=== PATIENT | female | born 1950 | race Caucasian/White ===

== ENCOUNTER 2016-06-05 07:30 | Inpatient (IN) | payer MEDICARE ==
--- NOTE | 2016-05-01 14:00 | NUR ---
JOINT REPLACEMENT PREOP CLASS PATIENT ATTENDED JOINT REPLACEMENT PREOP CLASS. CASE MANAGEMENT CONTACT INFORMATION PROVIDED. EDUCATION WAS PROVIDED REGARDING WHAT TO EXPECT BEFORE, DURING AND AFTER SURGERY. INCLUDING: OVERVIEW OF ANATOMY AND PHYSIOLOGY HOSPITAL TREATMENT SCHEDULE THERAPY DEMONSTRATION CASE MANAGEMENT RESPONSIBILITIES DISCHARGE PLANNING EQUIPMENT NEEDS JOINT REPLACEMENT WORKBOOK ANTI-COAGULATION SURGERY STRONG NUTRITIONAL PROTOCOL DISCHARGE INSTRUCTIONS [facility] PATIENT PORTAL, WITH INSTRUCTIONS CJR AND PREOP SURVERY PREOP BATHING- CHG GIVEN ALL PATIENT'S QUESTIONS ANSWERED TO THEIR SATISFACTION. PATIENTS AND COACHES ENCOURAGED TO CALL WITH ANY ADDITIONAL QUESTIONS OR CONCERNS. CM FOLLOWING FOR TRANSITIONAL CARE PLANNING NEEDS DURING HOSPITALIZATION.
--- NOTE | 2016-05-09 15:53 | NUR ---
PMH, allergies, meds reviewed and documented. Preop and DOS instructions given including handouts of medications to stop before surgery, shower instructions, letter from Dr Zepeda, ortho consent, Surgical Services pamphlet, and my contact information. Patient does express anxiety regarding several aspects of anesthesia, medications and postop care. She was tearful much of the time and did say Dr Zepeda has suggested she talk to Dr Morris about anxiety medication before surgery. I did reinforce that and also informed her I would be in contact with Dr Morris's office regarding this. I also encouraged her to call me if she has any other concerns so we can talk about it and she has agreed.
--- NOTE | 2016-05-19 13:06 | NUR ---
CM- PREOP CLASS PT ATTENDED PRE-OP CLASS AGAIN. AFTER CLASS SHE SPOKE WITH CM ABOUT CONCERNS WITH PAIN MEDICATIONS POSTOP DUE TO HER HISTORY OF ETOH ABUSE. CM ENCOURAGED PT TO DISCUSS THIS WITH SURGEON SINCE HE WILL BE PRESCRIBING THE MEDICATION.S
--- NOTE | 2016-05-30 15:06 | NUR ---
PT CONCERNS PT CALLED AND REQUESTED THAT SHE ONLY RECEIVE THE FOLLOWING 4 HOME MEDICATIONS DURING HER HOSPITAL STAY. SHE DOES NOT WANT TO BE CHARGED FOR ANY BUT THESE: FENOFIBRATE LEVOTHYROXINE METOPROLOL SUCCINATE LOSARTAN POTASSIUM SHE REALIZES SHE IS AN IP AND MEDICARE WILL COVER THE MEDS, BUT SHE WANTS TO DO WHAT SHE CAN TO SAVE HEALTHCARE COSTS.
--- NOTE | 2016-05-31 10:20 | NUR ---
Postpone surgery Pt called to say she still has a bladder infection and needs to postpone her surgery. Rescheduled surgery for a later date and OR central scheduler notified with fax. Will plan to request clearance from Dr Gonzalez for her next scheduled DOS
[~2016-06-05] VITALS: Ht 154.9 cm; Wt 99.5 kg
[~2016-06-05 07:30] MED LIST: ACET-2890 PO; ASPI-1085 PO; BUME1TAB17 PO; COQ PO; ESTR42.53 VAGINALLY; FENO160T12 PO; FISH1CAP59 PO; FLUT16SP NS; KRILL OIL PO; LEVO125T62 PO; LOSA100T44 PO; METO-277 PO; POTA99TA24 PO
--- NOTE | 2016-06-12 09:18 | NUR ---
UTI Pt called to let me know she continues to struggle with UTI. Antibiotic has been changed and Dr Gonzalez has put her on a different medication for overactive bladder which she will start today or tomorrow. She has a followup appointment with Dr Gonzalez on 06-28 and agreed to call me after her appointment to let me know how the bladder infection is doing.
[2016-06-28] MEDS ORDERED: MIRA50TA PO (16:41)
[2016-06-28] MEDS ORDERED: CEPH-583 PO (16:44)
--- NOTE | 2016-07-02 18:26 | HPF ---
CHIEF COMPLAINT Left knee pain. HPI This is a 65-year-old lady complaining of left knee pain. She is scheduled for a left knee replacement on 07/05/2016. Her pain is severe. It is worsening. The pain is described as sharp, throbbing and aching. It is made worse with activity or changes in weather. She has tried rest, ice, heat, Tylenol and home exercises. She had an arthroscopic procedure which confirmed arthritic changes. She has tried steroid injections without much relief. PAST MEDICAL HISTORY ALLERGIES Antihistamines, sulfa, codeine, Benadryl, gentamycin and prednisone. CURRENT MEDICATIONS Reviewed in EMR. ILLNESSES Hypertension. Hypothyroidism. Stroke in 2009. Chronic UTIs with incontinence. History of pneumonia. History of alcoholism with now 22 years of sobriety. PAST SURGICAL HISTORY Bilateral knee scopes. Tubal ligation. Abdominal hysterectomy. Bladder tuck procedure. REVIEW OF SYSTEMS Unchanged from copy in the chart. PHYSICAL EXAMINATION 65-year-old lady who is alert and oriented, in no distress. She is very anxious about her upcoming surgery. The left knee shows skin to be intact without lesions. She has a varus deformity which is correctable. She is tender to palpation along the medial joint line. She is maintaining good range of motion and is neurovascularly intact to the lower extremity. ASSESSMENT Primary degenerative arthritis of the left knee. PLAN Patient has been evaluated by Dr. Zepeda in the office and found to be an acceptable candidate to proceed with knee replacement. She has a history of pain medication abuse and therefore we will avoid narcotics after surgery to try to focus on tramadol. She does have a significant urinary incontinence problem and is requesting use of a catheter after surgery. Risks and potential complications of surgery have been reviewed. She has no further questions at this time. Will proceed with total knee replacement 07/05/2016. JASEN
[2016-07-05] VITALS (25 sets, daily range): BP systolic 152–227; BP diastolic 69–108; PULSE 57–75; RESP 16–22; TEMP 95.8–97.8; O2SAT 90–100; Ht 154.9 cm; Wt 99.5 kg
[2016-07-05] MEDS ORDERED: FAMOTIDINE 20mg IVPB 50 ML IV ONE (06:00)
[2016-07-05] MEDS ORDERED: CEFAZOLIN 2 GM VIAL IV ONE (06:00)
[2016-07-05] MEDS ORDERED: LIDOCAINE 1% (10mg/ml) 2ml SDV SQ ONE (06:00)
[2016-07-05] MEDS ORDERED: TRANEXAMIC ACID 1000 MG/10 ML TOP ONE (06:00)
[2016-07-05] MEDS ORDERED: METOCLOPRAMIDE 10mg/2ml INJECTION IV ONE (06:00)
[2016-07-05] MEDS ORDERED: LR 1,000 ML IV SCH (07:00)
[2016-07-05] MEDS ORDERED: ACETAMINOPHEN 500 MG TABLET PO ONE (07:00)
[2016-07-05] MEDS ORDERED: NOZIN NASAL SWAB NS ONE ×2 (07:00→15:45)
[2016-07-05] MEDS ORDERED: EPINEPHRINE 0.25 MG, BUPIVACAINE 0.25% 75 MG, KETOROLAC 60 MG in NORMAL SALINE 30 ML INJ ONE (07:00)
[2016-07-05] MEDS ORDERED: ONDANSETRON 4mg/2ml INJECTION IV ONE (07:00)
--- OUTSIDE RECORDS SUMMARY | 2016-07-05 10:30 | XMS REPORT | Summary of Care ---
Author Author Woodrow Gonzalez M.D. Unknown Address [address] [place] [address] [place] [address] Phone Unavailable Care Team Providers Care Public Health Worker Name Role Phone Woodrow Gonzalez M.D. 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, 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) Status: Active Hematuria (599.70, R31.9) Status: Active Chronic cystitis (595.2, N30.20) Status: Active UTI (urinary tract infection) (599.0, N39.0) Status: Active Atrophic vaginitis (627.3, N95.2) Status: Active Recurrent UTI (599.0, N39.0) Status: Active Incomplete emptying of bladder (788.21, R33.9) Status: Active Urinary incontinence, mixed (788.33, N39.46) Status: Active Polyuria (788.42, R35.8) Status: Active Medications Name Dates Details Cozaar 100 MG Oral Tablet Active Flonase 50 MCG/ACT SUSP * Refills: 0 Active Potassium Gluconate 595 (99 K) MG Oral Tablet * Refills: 0 Active Fenofibrate 160 MG Oral Tablet * Refills: 0 Active Levothyroxine Sodium 125 MCG Oral Tablet * Refills: 0 Active Toprol XL 50 MG Oral Tablet Extended Release 24 Hour * Refills: 0 Active Aspirin Low Dose 81 MG TABS * Refills: 0 Active Fish Oil 1200 MG Oral Capsule Delayed Release * Refills: 0 Active Co Q10 Maximum Strength CAPS * Refills: 0 Active Oxymetazoline HCl Powder * Refills: 0 Active Oxybutynin Chloride 5 MG Oral Tablet TAKE 1 TABLET 3 times daily * Quantity: 270 Refills: 3 Carlos Mariee Woodrow * Start 14-Dec-2015 Active Estrace 0.1 MG/GM Vaginal Cream USE DIRECTED. * Refills: 0 * Start 03-May-2016 Active Myrbetriq 50 MG Oral Tablet Extended Release 24 Hour Take 1 tablet daily * Quantity: 90 Refills: 3 Carlos Jaylene Woodrow * Start 31-May-2016 Active Allergies and Adverse Reactions Name Dates Details Antihistamines, Loratadine-type (Allergy) Status: Active gentamicin (Allergy) Status: Active predniSONE (Allergy) Status: Active Sulfa Drugs (Allergy) Status: Active Past Medical History Name Dates Details History of (637.90, O03.9) Status: Resolved History of pneumonia (V12.61, Z87.01) Status: Resolved History of stroke (V12.54, Z86.73) Status: Resolved Procedures Procedure Dates Details History of Tubal Ligation History of Hysterectomy History of Knee Arthroscopy Procedures not documented Immunization Name Dates Details Immunizations not documented Family History Name Dates Details Family history of diabetes mellitus (V18.0, Z83.3) Status: Active Name Dates Details Family history of malignant neoplasm (V16.9, Z80.9) Status: Active Name Dates Details Family history of malignant neoplasm (V16.9, Z80.9) Status: Active Social History Name Dates Details - Status: Name Dates Details Never smoker Vital Signs Date Test Result Details No Known Vitals to report Results Date Description Value Details 04-Jun-2016 09:25 URINE CULTURE [id number] Comments: Quest performed at: [facility] [place] [address] [facility] [place], [address], Upper Extremity Surgeon: Woodrow Leon D.O., MPHQuest Collection Date/Time: [id number] Results Received Date/Time: [id number] Reported Date/Time: [id number] FASTING:NOQuest performed at: [facility] [place] [address] [place], [address], Upper Extremity Surgeon: Woodrow Leon D.O., MPHQuest Collection Date/Time: [id number] Results Received Date/Time: [id number] Reported Date/Time: [id number] FASTING:NO CULTURE, URINE, ROUTINE SEE NOTE (Abnormal) Comments: CULTURE, URINE, ROUTINE MICRO NUMBER: [id number] TEST STATUS: FINAL SPECIMEN SOURCE : URINE, CATHETER SPECIMEN QUALITY: ADEQUATE RESULT: Greater than 100,000 CFU/mL of Escherichia coli E.coli INT SARAH AMOX/ CLAVULANATE I 16 AMPICILLIN R >=32 AMP/SULBACTAM R >=32 CEFAZOLIN NR <=4 1 CEFEPIME S <=1 CEFTRIAXONE S <=1 CIPROFLOXACIN R >=4 ERTAPENEM S <=0.5 GENTAMICIN S <=1 IMIPENEM S <=0.25 LEVOFLOXACIN R >=8 NITROFURANTOIN S <=16 PIP/TAZOBACTAM R >=128 TOBRAMYCIN S <=1 TRIMETHOPRIM/SULFA R >=320S= Susceptible I=Intermediate R=Resistant *=Not TestedNR=Not Reported NN=See Therapy CommentsTHERAPY COMMENTS Note 1: ORAL therapy: A cefazolin SARAH of < 32 predicts susceptibility to the oral agents cefaclor, cefdinir, cefpodoxime, cefprozil, cefuroxime, cephalexin, and loracarbef when used for therapy of uncomplicated UTIs due to E. coli, K. pneumoniae, and P. mirabilis. PARENTERAL therapy: A cefazolin SARAH of > 8 indicates resistance to parenteral cefazolin. An alternate test method must be performed to to confirm susceptibility to parenteral cefazolin.[[place]]----- Plan of Care Name Dates Details Planned Observations Planned Goals not documented Planned Encounters Appointment; Provider: Woodrow Gonzalez M.D. On 28-Jun-2016 09:30 Instructions Name Dates Details Instructions not documented Encounters Appointment; Woodrow Gonzalez M.D. Encounter Diagnosis: Problem not documented On 31-May-2016 09:00 Appointment; Woodrow Gonzalez M.D. Encounter Diagnosis: Problem not documented On 03-May-2016 09:45 Appointment; Cho, Woodrow, M.D. Encounter Diagnosis: Problem not documented On 22-Feb-2016 16:15 Appointment; Woodrow Gonzalez M.D. Encounter Diagnosis: Problem not documented On 15-Feb-2016 15:45 Appointment; Woodrow Gonzalez M.D. Encounter Diagnosis: Problem not documented On 03-Feb-2016 10:30 Appointment; Woodrow Gonzalez M.D. Encounter Diagnosis: Problem not documented On 23-Dec-2015 10:30 Appointment; Woodrow Gonzalez M.D. Encounter Diagnosis: Problem not documented On 14-Dec-2015 09:45
--- OUTSIDE RECORDS SUMMARY | 2016-07-05 10:30 | XMS REPORT | Summary of Care ---
Author Author Woodrow Gonzalez M.D. Unknown Address [address] [place] [address] [place] [address] Phone Unavailable Care Team Providers Care Extractor Operator Helper Name Role Phone Woodrow Gonzalez M.D. Unavailable [...] Status: Active Hematuria (599.70, R31.9) Status: Active Polyuria (788.42, R35.8) Status: Active Recurrent UTI (599.0, N39.0) Status: Active Chronic cystitis (595.2, N30.20) Status: Active UTI (urinary tract infection) (599.0, N39.0) Status: Active Incomplete emptying of bladder (788.21, R33.9) Status: Active Urinary incontinence, mixed (788.33, N39.46) Status: Active Atrophic vaginitis (627.3, N95.2) Status: Active Medications Name Dates Details Cozaar [...] times daily * Quantity: 270 Refills: 3 Woodrow Gonzalez M.D. * Start 14-Dec-2015 Active Estrace 0.1 MG/GM Vaginal Cream USE DIRECTED. * Refills: 0 * Start 03-May-2016 Active Ciprofloxacin HCl - 250 MG Oral Tablet TAKE 1 TABLET TWICE DAILY. * Quantity: 28 Refills: 0 Woodrow Gonzalez M.D. * Start 03-May-2016 Active Allergies and Adverse Reactions Name Dates [...] smoker Vital Signs Date Test Result Details 03-May-2016 09:46 BP Systolic 160 mm[Hg] Status: Comments: Location: ; Position: BP Diastolic 89 mm[Hg] Status: Comments: Location: ; Position: Heart Rate 63 /min Status: Comments: Location: ; Weight 209 lb Status: Body Mass Index Calculated 39.49 kg/m2 Status: Body Surface Area Calculated 1.92 m2 Status: Results Date Description Value Details 05-May-2016 15:49 URINE CULTURE [id number] Comments: New KCBX performed at: [place], [facility] [place] [address] [address] [facility] [place], [address], Mechanical Supervisor: Woodrow Leon D.O., MPHQuest Collection Date/Time: [id number] Results Received Date/Time: [id number] Reported Date/Time: [id number] FASTING:NOQuest performed at: [facility], [address] [place], [address], Mechanical Supervisor: Woodrow Leon D.O., MPHQuest Collection Date/Time: [id number] Results Received Date/Time: [id number] Reported Date/Time: [id number] FASTING:NO CULTURE, URINE, ROUTINE SEE NOTE (Abnormal) Comments: CULTURE, URINE, ROUTINE MICRO NUMBER: [id number] TEST STATUS: FINAL SPECIMEN SOURCE : URINE, CATHETER SPECIMEN QUALITY: ADEQUATE RESULT: 10,000-50, 000 CFU/mL of Escherichia coli E.coli INT SARAH AMOX/CLAVULANATE S 4 AMPICILLIN R >=32 AMP/SULBACTAM I 16 CEFAZOLIN NR <=4 1 CEFEPIME S <=1 CEFTRIAXONE S <=1 CIPROFLOXACIN R >=4 ERTAPENEM S <=0.5 GENTAMICIN S <=1 IMIPENEM S <=0.25 LEVOFLOXACIN R >=8 NITROFURANTOIN S <=16 PIP/TAZOBACTAM S <=4 TOBRAMYCIN S <=1 TRIMETHOPRIM/SULFA S <=20S= Susceptible I=Intermediate R=Resistant *=Not TestedNR=Not Reported NN=See [...] performed to to confirm susceptibility to parenteral cefazolin.[[place]]----- Plan of Care Name Dates Details Planned Observations Planned Goals not documented Planned Encounters Appointment; Provider: Woodrow Gonzalez M.D. On 17-May-2016 10:00 Instructions Name Dates Details Instructions not documented Encounters Appointment; Woodrow Gonzalez M.D. Encounter Diagnosis: Problem not documented On 03-May-2016 09:45 Appointment; Woodrow Gonzalez M.D. Encounter Diagnosis: Problem [...]
--- OUTSIDE RECORDS SUMMARY | 2016-07-05 10:30 | XMS REPORT | Summary of Care ---
Author Author Woodrow Gonzalez M.D. Unknown Address [address] [place] [address] [place] [address] Phone Unavailable Care Team Providers Care Dials Supervisor Name Role Phone Woodrow Gonzalez M.D. 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: Active Medications Name Dates Details Cozaar 100 MG Oral Tablet Active Flonase 50 MCG/ACT SUSP * Refills: 0 Active Potassium Gluconate 595 MG Oral Tablet * Refills: 0 Active Fenofibrate 160 MG Oral Tablet * Refills: 0 Active Levothyroxine Sodium 125 MCG Oral Tablet * Refills: 0 Active Toprol XL 50 MG Oral Tablet Extended Release 24 Hour * Refills: 0 Active Toviaz 8 MG Oral Tablet Extended Release 24 Hour * Refills: 0 Active Aspirin Low Dose 81 MG TABS * Refills: 0 Active Fish Oil 1200 MG Oral Capsule Delayed Release * Refills: 0 Active Co Q10 Maximum Strength CAPS * Refills: 0 Active Oxymetazoline HCl Powder * Refills: 0 Active Ciprofloxacin HCl - 250 MG Oral Tablet TAKE 1 TABLET EVERY 12 HOURS DAILY. * Quantity: 20 Refills: 0 Cho M.D., Woodrow * Start 14-Dec-2015 Active Oxybutynin Chloride 5 MG Oral Tablet TAKE 1 TABLET 3 times daily * Quantity: 270 Refills: 3 Cho M.D., Woodrow * Start 14-Dec-2015 Active Cephalexin 500 MG Oral Capsule TAKE 1 CAPSULE 3 TIMES DAILY. * Quantity: 90 Refills: 0 Cho M.D., Woodrow * Start 23-Dec-2015 Active Allergies and Adverse Reactions Name Dates [...] smoker Vital Signs Date Test Result Details 14-Dec-2015 09:01 BP Systolic 168 mm[Hg] Status: Comments: Location: ; Position: BP Diastolic 84 mm[Hg] Status: Comments: Location: ; Position: Heart Rate 63 /min Status: Comments: Location: ; Height 61 in Status: Weight 217 lb Status: Body Mass Index Calculated 41 kg/m2 Status: Body Surface Area Calculated 1.96 m2 Status: Results Date Description Value Details 16-Dec-2015 17:10 URINE CULTURE [id number] Comments: Giggzo performed at: [place], [facility], [address] [place], [address], Paint Maker: Woodrow Leon D.O., MPHQuest Collection Date/Time: [id number] Results Received Date/Time: [id number] Reported Date/Time: [id number] FASTING:NOQuest performed at: [place], [facility], [address] [place], [address], Paint Maker: Woodrow Leon D.O., MPHQuest Collection Date/Time: [id number] Results Received Date/Time: [id number] Reported Date/Time: [id number] FASTING:NO CULTURE, URINE, ROUTINE SEE NOTE (Abnormal) Comments: CULTURE, URINE, ROUTINE MICRO NUMBER: [id number] TEST STATUS: FINAL SPECIMEN SOURCE : URINE, CLEAN CATCH SPECIMEN QUALITY: ADEQUATE RESULT: Greater than 100,000 CFU/mL of Escherichia coli E.coli INT SARAH AMOX/ CLAVULANATE S <=2 AMPICILLIN S <=2 AMP/SULBACTAM S <=2 CEFAZOLIN NR <=4 1 CEFEPIME S <=1 CEFTRIAXONE S <=1 CIPROFLOXACIN S <=0.25 ERTAPENEM S <=0.5 GENTAMICIN S <=1 IMIPENEM S <=0.25 LEVOFLOXACIN S <=0.12 NITROFURANTOIN S <=16 PIP/TAZOBACTAM S <=4 TOBRAMYCIN [...] performed to to confirm susceptibility to parenteral cefazolin.[[place]]----- Plan of Care Name Dates Details Planned Observations Planned Goals not documented Planned Encounters Appointment; Provider: Woodrow Gonzalez M.D. On 03-Feb-2016 10:30 Interventions Provided Medication Changes* Cephalexin 500 MG Oral Capsule - Start * Oxybutynin Chloride 5 MG Oral Tablet - Renew Instructions Name Dates Details Instructions not documented Encounters Appointment; Woodrow Gonzalez M.D. Encounter Diagnosis: Problem not documented On 14-Dec-2015 09:45
--- OUTSIDE RECORDS SUMMARY | 2016-07-05 10:30 | XMS REPORT | Summary of Care ---
Author Author Woodrow Gonzalez M.D. Unknown Address [address] [place] [address] [place] [address] Phone Unavailable Care Team Providers Care Director Medical Name Role Phone Woodrow Gonzalez M.D. 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 * Quantity: 180 Refills: 3 Cho M.D., Woodrow * Start 03-Feb-2016 Active Amoxicillin-Pot Clavulanate 500-125 MG Oral Tablet TAKE 1 TABLET 3 TIMES A DAY. * Quantity: 42 Refills: 0 Cho M.D., Woodrow * Start 15-Feb-2016 Active Allergies and Adverse Reactions Name Dates [...] History of Hysterectomy History of Knee Arthroscopy URINE CULTURE [id number] Ordered: 15-Feb-2016 Immunization Name Dates Details Immunizations not documented Family History Name Dates Details Family history of diabetes mellitus (V18.0, Z83.3) Status: Active Name Dates Details Family history of malignant neoplasm (V16.9, Z80.9) Status: Active Name Dates Details Family history of malignant neoplasm (V16.9, Z80.9) Status: Active Social History Name Dates Details - Status: Name Dates Details Never smoker Vital Signs Date Test Result Details 15-Feb-2016 15:58 BP Systolic 166 mm[Hg] Status: Comments: Location: ; Position: BP Diastolic 90 mm[Hg] Status: Comments: Location: ; Position: Heart Rate 68 /min Status: Comments: Location: ; Height 61 in Status: Weight 209 lb Status: Body Mass Index Calculated 39.49 kg/m2 Status: Body Surface Area Calculated 1.92 m2 Status: 03-Feb-2016 10:32 BP Systolic 159 mm[Hg] Status: Comments: Location: ; Position: BP Diastolic 80 mm[Hg] Status: Comments: Location: ; Position: Heart Rate 59 /min Status: Comments: Location: ; Height 61 in Status: Weight 217 lb Status: Body Mass Index Calculated 41 kg/m2 Status: Body Surface Area Calculated 1.96 m2 Status: Results Date Description Value Details Results not documented Plan of Care Name Dates Details Planned Observations Planned Goals not documented Planned Encounters Appointment; Provider: Woodrow Gonzalez M.D. On 04-May-2016 09:45 Interventions Provided Medication Changes* Amoxicillin-Pot Clavulanate 500-125 MG Oral Tablet - Start Labs/Procedures/Imaging* URINE CULTURE [id number]; To be Done: 15 Feb 2016 Instructions Name Dates Details Instructions not documented Encounters Appointment; Woodrow Gonzalez M.D. Encounter Diagnosis: Problem not documented On 03-Feb-2016 10:30 Appointment; Woodrow Gonzalez M.D. Encounter Diagnosis: Problem not documented On 23-Dec-2015 10:30 Appointment; Woodrow Gonzalez M.D. Encounter Diagnosis: Problem not documented On 14-Dec-2015 09:45
--- OUTSIDE RECORDS SUMMARY | 2016-07-05 10:30 | XMS REPORT | Summary of Care ---
Author Author Woodrow Gonzalez M.D. Unknown Address [address] [place] [address] [place] [address] Phone Unavailable Care Team Providers Care Behavior Therapist Name Role Phone Woodrow Gonzalez M.D. Unavailable [...] Hysterectomy History of Knee Arthroscopy URINE CULTURE [id number] Ordered: 03-May-2016 Immunization Name Dates Details Immunizations not documented [...] Provider: Woodrow Gonzalez M.D. On 17-May-2016 10:00 Interventions Provided Medication Changes* Ciprofloxacin HCl - 250 MG Oral Tablet - Start Labs/Procedures/Imaging* URINE CULTURE [id number]; To be Done: 03 May 2016 Instructions Name Dates Details Instructions not [...]
--- OUTSIDE RECORDS SUMMARY | 2016-07-05 10:30 | XMS REPORT | Summary of Care ---
Author Author Woodrow Gonzalez M.D. Unknown Address [address] [place] [address] [place] [address] Phone Unavailable Care Team Providers Care Community Board Member Name Role Phone Woodrow Gonzalez M.D. 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 * Start 14-Dec-2015 Active Allergies and Adverse Reactions Name Dates [...] smoker Vital Signs Date Test Result Details 03-Feb-2016 10:32 BP Systolic 159 mm[Hg] Status: [...] On 04-May-2016 09:45 Interventions Provided Medication Changes* Cephalexin 500 MG Oral Capsule - Completed * Ciprofloxacin HCl - 250 MG Oral Tablet - Completed Instructions Name Dates Details Instructions not documented Encounters Appointment; Woodrow Gonzalez M.D. Encounter Diagnosis: Problem not documented On 23-Dec-2015 10:30 Appointment; Woodrow Gonzalez M.D. Encounter Diagnosis: Problem not documented On 14-Dec-2015 09:45
--- OUTSIDE RECORDS SUMMARY | 2016-07-05 10:30 | XMS REPORT | Continuity of Care Document ---
Author Author [facility] Organization [facility] Address Unknown Phone Unavailable Care Team Providers Care Section Weaver Name Role Phone DUNCAN GARCIA DO Primary Care Physician [phone] Insurance Providers Guarantor Adrienne Randhawa Address [address] [place] [address] C Email DENIED/NO TO PT [place] Payer [employer] Policy Number [id number] Subscriber's Name Adrienne Randhawa Relationship 18 Self Effective Date 10 Chief Complaint and Reason for Visit Chief Complaint General Reason for Visit Edema Problems Past Problems Medical Problem Onset Date Edema Unknown Medications Current Home Medications Medication Dose Units Route Directions Days Qty Instructions Start Date Acetaminophen 500 Mg Tablet 3 Tab Oral Twice A Day as needed for Pain Do not exceed 3,200 mg of acetaminophen in a 24 hours period. 08/18/14 Aspirin (Aspirin Ec) 325 Mg Tablet. 325 Mg Oral Twice A Day 84 Tablet This is an over the counter medication. Take Aspirin twice a day for 6 weeks 09/09/14 Bumetanide 1 Mg Tablet 1 Mg Oral Daily 08/18/14 Colesevelam Hcl (Welchol) 625 Mg Tablet 3 Tab Oral Twice A Day Fenofibrate 160 Mg Tablet 160 Mg Oral Daily 08/18/14 Fesoterodine Fumarate (Toviaz) 8 Mg Tab.er.24h 8 Mg Oral Daily Fluticasone Propionate (Fluticasone Prop 50 Mcg/Actuation Nasal [place]) 120 [place]/16 G [place] 2 [place] Nasal Bedtime 08/18/14 Furosemide (Lasix) 40 Mg Tablet 20 Mg Oral Daily 08/18/14 Levothyroxine Sodium (Levoxyl) 125 Mcg Tablet 125 Mcg Oral Daily 07/06/09 Losartan Potassium 100 Mg Tablet 100 Mg Oral Bedtime 08/18/14 Metoprolol Succinate 50 Mg Tab.er.24h 50 Mg Oral Bedtime 08/18/14 Naproxen Sodium (Aleve) 220 Mg Tablet 440 Mg Oral Twice Daily With Meals as needed for Pain 60 Tablet Take 2 (220 mg) tablets, by mouth, twice daily with meals. 09/09/14 [place]-3 Acid Ethyl Esters (Lovaza) 1 G Capsule 4 G Oral Daily 05/02 Potassium Chloride 20 Meq Tablet.er 20 Meq Oral Give With Breakfast Take 1 tablet, by mouth, daily with breakfast. 08/18/14 Past Home Medications Medication Directions Ordered Status Aspirin (Aspir 81) 81 Mg Tablet.dr, 81 Mg Oral Daily 07/06/09 Discontinued Social History Social History Problem Response Recorded Date/Time Onset Date Status Hx Substance Use No 08/18/2014 11:20am Not Applicable Not Applicable Hx Alcohol Use Y 22 YEARS OF SOBRIETY 08/18/2014 11:20am Not Applicable Not Applicable Has the pt used tobacco in the last 12 months No 08/18/2014 11:20am Not Applicable Not Applicable Hospital Discharge Instructions No hospital discharge instructions. Plan of Care Discharge Date 12/23/15 1:32pm Disposition 01 DISCHARGED HOME, SELF-CARE Condition at Discharge Stable Instructions/Education Provided DI for Dependent Edema Prescriptions See Medication Section Referrals DUNCAN GARCIA DO Address: [address] [place] [address] [address] [place] [address] [phone] Additional Instructions/Education Take the medication as previously prescribed. Follow up with Dr. Garcia in a couple of days for a weight check and evaulation. Functional Status No functional status results. Allergies, Adverse Reactions, Alerts Allergen Type Severity Reaction Status Last Updated diphenhydramine HCl Adverse Reaction Unknown IRRITABILITY; HYPER Active Sulfa (Sulfonamide Antibiotics) Allergy Unknown RASH Active 08/18/14 Codeine Allergy Unknown RASH Active 08/18/14 Prednisone Adverse Reaction Unknown ELEVATED BP THAT CASUED A STROKE Active 08/18/14 Gentamicins Adverse Reaction Unknown COUGH Active 08/18/14 ANTIHISTAMINE DECONGESTANT Adverse Reaction Unknown HYPER Active 08/18/14 Immunizations Query Response on File Recorded Date/Time Hx Influenza Vaccination N DECLINES 08/18/14 11:20am Hx Pneumococcal Vaccination N DECLINES 08/18/14 11:20am Hx Influenza Vaccination N DECLINES 08/18/14 11:20am Vital Signs Acute Vital Signs Vital Response Date/Time Temperature (Fahrenheit) 98.0 deg F (96.8 - 99.1) 12/23/2015 12:39pm Temperature (Calculated Celsius) 36.76020 degrees C (36.0 - 37.3) 12/23/2015 12:39pm Pulse Rate (adult) 70 bpm (60 - 100) 12/23/2015 12:39pm Respiratory Rate 22 breaths/min (10 - 20) 12/23/2015 12:39pm O2 Sat by Pulse Oximetry 93 % (90 - 100) 12/23/2015 12:39pm Blood Pressure 147/85 mm Hg 12/23/2015 12:39pm Weight (Kilograms) 99.700 kg 12/23/2015 12:39pm Results No known relevant diagnostic tests, laboratory data and/or discharge summary. Procedures No known history of procedures. Encounters Encounter Location Arrival/Admit Date Discharge/Depart Date Attending Provider Departed Emergency Room [facility] 12/23/15 12:34pm 12/23/15 1: 32pm JESSICA LU APRN Recent Diagnosis
--- OUTSIDE RECORDS SUMMARY | 2016-07-05 10:30 | XMS REPORT | Summary of Care ---
Author Author Woodrow Gonzalez M.D. Unknown Address [address] [place] [address] [place] [address] Phone Unavailable Care Team Providers Care General Studies Program Chair Name Role Phone Woodrow Gonzalez M.D. 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 Incomplete emptying of bladder (788.21, R33.9) Status: Active Polyuria (788.42, R35.8) Status: Active Hematuria (599.70, R31.9) Status: Active Recurrent UTI (599.0, N39.0) Status: Active Mixed incontinence (788.33, [...] smoker Vital Signs Date Test Result Details 22-Feb-2016 16:00 BP Systolic 152 mm[Hg] Status: Comments: Location: ; Position: BP Diastolic 83 mm[Hg] Status: Comments: Location: ; Position: Heart Rate 62 /min Status: Comments: Location: ; Height 61 in Status: Weight 209 lb Status: Body Mass Index Calculated 39.49 kg/m2 Status: Body Surface Area Calculated 1.92 m2 Status: 15-Feb-2016 15:58 BP Systolic 166 mm[Hg] Status: [...] m2 Status: Results Date Description Value Details 18-Feb-2016 15:54 URINE CULTURE [id number] Comments: [facility] performed at: [facility], [address] [place] [address], [address] [place] [address], [employer] Press Clippings: Woodrow Leon D.O., MPHQuest Collection Date/Time: [id number] Results Received Date/Time: [id number] Reported Date/Time: [id number] FASTING:NOQuest performed at: [facility], [address] [place] [address], [address] [place] [address], [employer] Clippings: Woodrow Leon D.O., [facility] Collection Date/Time: [id number] Results Received Date/Time: [id number] Reported Date/Time: FASTING:NOQuest performed at: [facility], [address] [place] [address], [address] [place] [address], [employer] Clippings: Woodrow Leon D.O., MPHQuest Collection Date/Time: [id number] Results Received Date/Time: [id number] Reported Date/Time: FASTING:NO CULTURE, URINE, ROUTINE SEE NOTE (Abnormal) Comments: CULTURE, URINE, ROUTINE MICRO NUMBER: [id number] TEST STATUS: FINAL SPECIMEN SOURCE : URINE, CATHETER SPECIMEN QUALITY: ADEQUATE RESULT: Greater than 100,000 CFU/mL of Escherichia coli E.coli INT SARAH AMOX/ CLAVULANATE S 8 AMPICILLIN R >=32 AMP/SULBACTAM R >=32 CEFAZOLIN [...] Provider: Woodrow Gonzalez M.D. On 04-May-2016 09:45 Instructions Name Dates Details Instructions not documented Encounters Appointment; Woodrow Gonzalez M.D. Encounter Diagnosis: Problem not documented On 15-Feb-2016 15:45 Appointment; Woodrow Gonzalez M.D. Encounter Diagnosis: Problem not documented On 03-Feb-2016 10:30 Appointment; Woodrow Gonzalez M.D. Encounter Diagnosis: Problem not documented On 23-Dec-2015 10:30 Appointment; Woodrow Gonzalez M.D. Encounter Diagnosis: Problem not documented On 14-Dec-2015 09:45
--- OUTSIDE RECORDS SUMMARY | 2016-07-05 10:30 | XMS REPORT | Summary of Care ---
Author Author Woodrow Gonzalez M.D. Unknown Address [address] [place] [address] [place] [address] Phone Unavailable Care Team Providers Care Bellhop Name Role Phone Woodrow Gonzalez M.D. Unavailable [...] Description Value Details 18-Feb-2016 15:54 URINE CULTURE [id number] Comments: Quest performed at: [facility], [address] [place] [address], [address], [employer] T[employer] Supervisor: Woodrow Leon D.O., MPHQuest Collection Date/Time: [id number] Results Received Date/Time: [id number] Reported Date/Time: [id number] FASTING:NOQuest performed at: [place], [facility], [address] [place] [address], [address], [employer] Supervisor: Woodrow Leon D.O., MPHQuest Collection Date/Time: [id number] Results Received Date/Time: [id number] Reported Date/Time: FASTING:NOQuest performed at: [facility], [address] [place] [address], [address], [employer] Supervisor: Woodrow Leon D.O., MPHQuest Collection Date/Time: [id number] Results Received Date/Time: [id number] Reported Date/Time: FASTING:NO CULTURE, URINE, ROUTINE SEE NOTE (Abnormal) Comments: CULTURE, URINE, ROUTINE MICRO NUMBER: [id number] TEST STATUS: FINAL SPECIMEN SOURCE : URINE, [...] Provider: Woodrow Gonzalez M.D. On 04-May-2016 09:45 Appointment; Provider: Woodrow Gonzalez M.D. On 22-Feb-2016 16:15 Instructions Name Dates Details Instructions not documented Encounters Appointment; Woodrow Gonzalez M.D. Encounter Diagnosis: Problem not documented On 15-Feb-2016 15:45 Appointment; Woodrow Gonzalez M.D. Encounter Diagnosis: Problem not documented On 03-Feb-2016 10:30 Appointment; Woodrow Gonzalez M.D. Encounter Diagnosis: Problem not documented On 23-Dec-2015 10:30 Appointment; Woodrow Gonzalez M.D. Encounter Diagnosis: Problem not documented On 14-Dec-2015 09:45
--- OUTSIDE RECORDS SUMMARY | 2016-07-05 10:31 | XMS REPORT | Summary of Care ---
Author Author Woodrow Gonzalez M.D. Unknown Address [address] [place] [address] [place] [address] Phone Unavailable Care Team Providers Care Livestock Auctioneer Name Role Phone Woodrow Gonzalez M.D. Unavailable [...] daily * Quantity: 90 Refills: 3 Carlos Mariee Woodrow * Start 31-May-2016 Active Allergies and [...] Hysterectomy History of Knee Arthroscopy URINE CULTURE [id number] Ordered: 31-May-2016 Immunization Name Dates Details Immunizations not documented [...] Description Value Details 05-May-2016 15:49 URINE CULTURE [id number] Comments: [place] performed at: [place], [facility] [place], [facility] [place]note 2] [facility], [address], Public Relations Associate: Woodrow Leon D.O., MPHQuest Collection Date/Time: [id number] Results Received Date/Time: [id number] Reported Date/Time: [id number] FASTING:NOQuest performed at: [place], [facility], [address] [facility], [place], [address], Public Relations Associate: Woodrow Leon D.O., MPHQuest Collection Date/Time: [id number] Results Received Date/Time: [id number] Reported Date/Time: [id number] FASTING:NO CULTURE, URINE, ROUTINE SEE NOTE (Abnormal) Comments: CULTURE, URINE, ROUTINE MICRO NUMBER: [id number] TEST STATUS: FINAL SPECIMEN SOURCE : URINE, [...] Provider: Woodrow Gonzalez M.D. On 28-Jun-2016 09:30 Interventions Provided Medication Changes* Myrbetriq 50 MG Oral Tablet Extended Release 24 Hour - Start Labs/Procedures/Imaging* URINE CULTURE [id number]; To be Done: 31 May 2016 Instructions Name Dates Details Instructions [...]
--- OUTSIDE RECORDS SUMMARY | 2016-07-05 10:31 | XMS REPORT | Summary of Care ---
Author Author Woodrow Gonzalez M.D. Unknown Address [address] [place] [address] [place] [address] Phone Unavailable Care Team Providers Care Director Of Admissions Name Role Phone Woodrow Gonzalez M.D. Unavailable [...] DAILY. * Quantity: 20 Refills: 0 Cho Lisa.Chantell Woodrow * Start 14-Dec-2015 Active Oxybutynin Chloride 5 MG Oral Tablet TAKE 1 TABLET 3 times daily * Quantity: 270 Refills: 3 Cho Jaylene Woodrow * Start 14-Dec-2015 Active Allergies and Adverse [...] Description Value Details 16-Dec-2015 17:10 URINE CULTURE [id number] Comments: Quest performed at: [facility], [address] [place], [address], Filling Mixer: Woodrow Leon D.O., MPHQuest Collection Date/Time: [id number] Results Received Date/Time: [id number] Reported Date/Time: [id number] FASTING:NOQuest performed at: [place], [place], [address] [address] [place], [address], Filling Mixer: Woodrow Leon D.O., MPHQuest Collection Date/Time: [id number] Results Received Date/Time: [id number] Reported Date/Time: FASTING:NO CULTURE, URINE, ROUTINE SEE NOTE (Abnormal) Comments: CULTURE, URINE, ROUTINE MICRO NUMBER: [id number] TEST STATUS: FINAL SPECIMEN SOURCE : URINE, [...] Provider: Woodrow Gonzalez M.D. On 03-Feb-2016 10:30 Instructions Name Dates Details Instructions not documented Encounters Appointment; Woodrow Gonzalez M.D. Encounter Diagnosis: Problem not documented On 14-Dec-2015 09:45
--- OUTSIDE RECORDS SUMMARY | 2016-07-05 10:31 | XMS REPORT | Summary of Care ---
Author Author Woodrow Gonzalez M.D. Unknown Address [address] [place] [address] [place] [address] Phone Unavailable Care Team Providers Care Guide Visitor Name Role Phone Woodrow Gonzalez M.D. Unavailable [...] Status: Active Hematuria (599.70, R31.9) Status: Active UTI (urinary tract infection) (599.0, N39.0) Status: Active Urinary incontinence, mixed (788.33, N39.46) Status: Active Polyuria (788.42, R35.8) Status: Active Recurrent UTI (599.0, N39.0) Status: Active Chronic cystitis (595.2, N30.20) Status: Active Atrophic vaginitis (627.3, N95.2) Status: Active Incomplete emptying of bladder (788.21, R33.9) Status: Active Medications Name Dates Details Cozaar [...] Oxymetazoline HCl Powder * Refills: 0 Active Estrace 0.1 MG/GM Vaginal Cream USE DIRECTED. * Refills: 0 * Start 03-May-2016 Active Myrbetriq 50 MG Oral Tablet Extended Release 24 Hour Take 1 tablet daily * Quantity: 90 Refills: 3 Cho Lisa.Ortiz. Woodrow * Start 31-May-2016 Active Cephalexin 500 MG Oral Capsule TAKE 1 CAPSULE 3 TIMES DAILY. * Quantity: 90 Refills: 0 Cho M.D., Woodrow * Start 05-Jun-2016 Active Allergies and Adverse Reactions Name Dates [...] Description Value Details 04-Jun-2016 09:25 URINE CULTURE [id number] Comments: Quest performed at: [facility] [place], [address] [place], [address], Rental Boats Caretaker: Woodrow Leon D.O., MPHQuest Collection Date/Time: [id number] Results Received Date/Time: [id number] Reported Date/Time: [id number] FASTING:NOQuest performed at: [facility] [place], [address] [place], [address], Rental Boats Caretaker: Woodrow Leon D.O., MPHQuest Collection Date/Time: [id number] Results Received Date/Time: [id number] Reported Date/Time: [id number] FASTING:NO CULTURE, URINE, ROUTINE SEE NOTE (Abnormal) Comments: CULTURE, URINE, ROUTINE MICRO NUMBER: [id number] TEST STATUS: FINAL SPECIMEN SOURCE : URINE, [...] Encounters Appointment; Provider: Woodrow Gonzalez M.D. On 10:00 Instructions Name Dates Details Instructions not [...]
[2016-07-05 11:25] LABS: ANION GAP 12 MEQ/L (5-15); BUN/CREATININE RATIO 28 RATIO (6-26); CALCIUM 9.1 MG/DL (8.4-10.2); CHLORIDE 106 MEQ/L (98-107); CO2 - CARBON DIOXIDE 26 MEQ/L (22-30); CREATININE 0.9 MG/DL (0.7-1.2); GLOMERULAR FILTRATION RATE 62; GLUCOSE 96 MG/DL (65-110); POTASSIUM 4.4 MEQ/L (3.6-5); SODIUM 144 MEQ/L (134-144)
[2016-07-05] MEDS ORDERED: VANCOMYCIN 1 GRAM INJECTION ONE (12:33)
[2016-07-05] MEDS ORDERED: PROPOFOL 500mg 50 ML IV ONE (13:51)
[2016-07-05] MEDS ORDERED: MIDAZOLAM 2mg/2ml INJECTION ONE (13:51)
--- NOTE | 2016-07-05 14:18 | ANESPREOP ---
Anesthesia Record Date and Time DATE: 07/05/16 TIME: 14:14 Pre-Op Diagnosis left knee osteoarthritis Proposed Surgical Procedure LT TKA NPO since: 0500 Allergies: Coded Allergies: Sulfa (Sulfonamide Antibiotics) (Verified Allergy, Unknown, HIVES, 05/09/16) codeine (Unverified Allergy, Unknown, RASH, 08/18/14) diphenhydramine HCl (Unverified Adverse Reaction, Unknown, IRRITABILITY; HYPER, 08/18/14) gentamicin (Unverified Adverse Reaction, Unknown, COUGH, 08/18/14) THINKS THIS MED CAUSED A COUGH, GOT PREDNISONE FOR THE COUGH, THE PREDNISONE INCREASED HER BP AND THEN SHE HAD A STROKE. prednisone (Unverified Adverse Reaction, Unknown, ELEVATED BP THAT CASUED A STROKE, 08/18/14) Uncoded Allergies: ANTIHISTAMINE DECONGESTANT (Adverse Reaction, Unknown, HYPER, 08/18/14) Ht/Wt/BMI Height: 5 ' 1.00 " Weight: 97.300 kg BMI: 40.5 kg/m2 Vital Signs Date Time Temp Pulse Resp B/P Pulse Ox O2 Delivery O2 Flow Rate FiO2 07/05/16 11:38 16 07/05/16 11:05 97.6 57 227/92 96 Room Air Medications Inpatient Medications Current Medications Medications (Trade) Dose Ordered Sig/Obie Start Time Stop Time Status Last Admin Dose Admin Lactated Ringer's (Lactated Ringers) 1,000 ml @ 50 mls/hr Q20H 07/05/16 07:00 07/05/16 11:47 50 MLS/HR Acetaminophen (Acetaminophen) 650 Mg Tablet.er, 2 TAB PO PM, (Reported) Last Taken: on 07/05/16 0000 Aspirin *EC* (Aspirin EC) 81 Mg Tablet.dr, 1 TAB PO DAILY, (Reported) DO NOT CHEW, CRUSH OR BREAK TABLET Last Taken: on 06/21/16 Bumetanide (Bumetanide) 1 Mg Tablet, 1 MG PO DAILY PRN for EDEMA, (Reported) Last Taken: on 06/05/16 Cephalexin (Keflex) 500 Mg Capsule, 1 CAP PO TID, ( Reported) Last Taken: on 07/04/16 0800 Estradiol (Estrace Vaginal Cream 0.01%) 21 Applic/42 G Cr, 1 APPLIC VAGINALLY HS, (Reported) USUAL APPLICATION: 2-4 GRAMS VAGINALLY Last Taken: on 07/01/16 Fenofibrate (Fenofibrate) 160 Mg Tablet, 160 MG PO DAILY, (Reported) Last Taken: on 07/04/16 0800 Fish Oil/Dha/Epa (Fish Oil 1,200 mg Fish Oil) 1 Each Capsule, 3 TAB PO BID, (Reported) Last Taken: on 06/28/16 Fluticasone Propionate (Fluticasone Prop 50 mcg/ actuation Nasal Venus) 120 Venus/16 G Venus, 2 SPRAY NS HS, (Reported) Last Taken: on 07/03/16 Levothyroxine Sodium (Levoxyl) 125 Mcg Tablet, 125 MCG PO DAILY, (Reported) Last Taken: on 07/05/16 0600 Losartan Potassium (Losartan Potassium) 100 Mg Tablet, 100 MG PO HS, (Reported) Last Taken: on 07/03/16 2200 Metoprolol Succinate (Metoprolol Succinate) 50 Mg Tab.er.24h, 50 MG PO HS, (Reported) Last Taken: on 07/04/16 2200 Mirabegron (Myrbetriq) 50 Mg Tab.er.24h, 50 MG PO HS, (Reported) Last Taken: on 07/01/16 Potassium Gluconate (Potassium) 600 Mg Tablet, 2 TAB PO BID, (Reported) Last Taken: on 07/01/16 [Coq10/Krill Oil] , 600 MG PO DAILY, (Reported) Last Taken: on 06/28/16 Currently on Beta Jeannette: Yes Beta Jeannette Last Taken: 06/05/162199 Medical/Surgical History Anesthesia PMH: Reports: *Hypertension, Anesthesia Reactions (FEARFUL OF ANYTHING ON FACE), Arthritis (KNEES, GENERALIZED), Asthma (HX OF/PT DENIES), CVA /Stroke/TIA (2009-SOME EMOTIONAL/MEMORY PROBLEMS), Obesity, Pneumonia (HX OF MORE THAN 5 YEARS AGO), Sleep Apnea, Thyroid Disease (TAKES MEDICATION), Denies : *Angina, *Diabetes, *Dyspnea, *RI, CHF, COPD, Cancer, Clotting Problems, Deep Vein Thrombosis, Glaucoma, Hepatitis, Hiatal Hernia, Malignant Hyperthermia, Pacemaker, Reflux, Renal Disease, Seizures, Tuberculosis Smoking Status: Never smoker Has pt. smoked today?: No Use Chewing Tobacco?: No Second Hand Exposure: No Substance Use Type: does not use Alcohol Intake: none HX of Last Menstrual Period: HYST Past Surgical History Orthopedic Surgeries: Yes - RT AND LT KNEE SCOPE Abdominal Surgeries: Yes Genitourinary Surgeries: Yes - BLADDER TUCK X2 Cardiac Surgeries: Endocrine Surgeries: Reproductive Surgeries: Yes - TUBAL LIG; ABD HYSTERECTOMY/BLADDER TUCK 1988 Neurological Surgeries: Ear Surgeries: Nose Surgeries: Throat Surgeries: Other Surgeries: Yes Anesthesia Adverse Reactions: FOUND none Family Hx of Anesthesia Advers: none Hx of Motion Sickness: No Pertinent Findings Laboratory Tests 07/05/16 11:12 EKG Rhythm: Sinus Rhythm Physical Exam Respiratory: Lungs clear Cardiovascular: FOUND Regular rate, rhythm, FOUND No murmur Airway Assessment Mallampati Score: III TMD: 2 Fingerbreadths Neck Extension: Fair Teeth: Chipped Teeth/Crowns Overall Assessment: May Be Diff Mask Vent., May Be Diff Intubation ASA: 3 Plan Regional: Spinal Discussion Discussed risks/options/alternatives of anesthesia and questions answered. Patient consents. Nursing pain assessment noted. Present: Family Member, Spouse Attestation Statement Prior to the delivery of any anesthetic medication, I examined the patient, developed the plan, obtained the patient's consent and discussed the risk and benefits of the procedure with the patient/guardian. BRUNO LUCIANO CRNA Jul 05, 2016 14:17
[2016-07-05] MEDS ORDERED: LABETALOL 20mg/4ml INJECTION IV ONE (14:24)
[2016-07-05] MEDS ORDERED: ROPIVACAINE 0.5% (5mg/ml) 30ml INJ ONE (14:27)
[2016-07-05] MEDS ORDERED: ONDANSETRON 4mg/2ml INJECTION IV PRN ×2 (14:30→15:45)
[2016-07-05] MEDS ORDERED: HYDROMORPHONE 2mg/ml INJECTION IV PRN (14:30)
[2016-07-05] MEDS ORDERED: EPHEDRINE SULFATE 50mg/ml INJECTION ONE (14:52)
[2016-07-05] MEDS ORDERED: SALINE FLUSH 10ml SYRINGE ONE (14:52)
--- NOTE | 2016-07-05 15:33 | PDOPERATE ---
Operative Report Date of Operation 07/05/16 Side: Left Preoperative Diagnosis: knee primary DJD Postoperative Diagnosis Same as preoperative diagnosis. Operation/Procedure: total knee arthroplasty (left) Surgeon Nely Zepeda MD Tape Recorder Repairer ALEJANDRO Queen Complications None. Regional Block: Spinal Estimated Blood Loss See Anesthesia Record. Fluids Please See Anesthesia Record. Description of Operation Ms. Randhawa and her left knee were identified and marked in the the preoperative holding area. She was then brought back to the operating suite and proper anesthesia was administered. She was then positioned supine on the operating table. The left lower extremity was then prepped and draped in my normal sterile fashion. Timeout was performed with all operating room personnel. The leg was exsanguinated and tourniquet inflated 250 mmHg. A standard anterior incision followed by a medial parapatellar approach was utilized. Her arthritis was located medially. There is also some damage beneath the patella. A distal femoral cut was made in 5 of valgus using intramedullary guide. The femur was sized at a 4 and rotation set using the epicondylar axis. Distal femoral cuts were performed. The tourniquet was let down. A proximal tibial cut was made using extramedullary guide. Remaining osteophytes and meniscus were removed. Gaps were checked and they were well balanced and rectangular. Trial components were placed with a 9 mm spacer. I took another millimeter off the tibial cut. This allowed for full range of motion and the patella tracked well. The knee was stable throughout range of motion. The patella was resurfaced with the knee in extension to a size 29. The tibia rotation was then marked and the tibia stamped at the proper rotation at a size 3. The bone was prepared for cementing and all components cemented into place and allowed to cure in extension. Betadine solution was used for 3 minutes during the curing period and then fully irrigated out with 1 L of normal saline. The tourniquet was deflated and hemostasis obtained with electrocautery. After the cement had cured the knee was taken through range of motion check for balance and stability which were good. Vancomycin powder was placed into the wound. The arthrotomy was closed with #1 Vicryl. The remainder of the wound was then closed by my tutoring assistant utilizing 2-0 vycral in the subcutaneous tissue. Ziplock was used on the skin followed by a sterile dressing. After closure the patient will be transferred to the recovery room under the care of anesthesia. SHERIN ZEPEDA MD Jul 05, 2016 15:33
[2016-07-05] MEDS ORDERED: NORMAL SALINE 1,000 ML IV SCH (15:40)
[2016-07-05] MEDS ORDERED: NAPROXEN 220 MG TABLET PO PRN (15:45)
[2016-07-05] MEDS ORDERED: PRN ORDERS MC (15:45)
[2016-07-05] MEDS ORDERED: LORAZEPAM 1 MG TABLET PO PRN (15:45)
[2016-07-05] MEDS ORDERED: METOCLOPRAMIDE 10mg/2ml INJECTION IV PRN (15:45)
[2016-07-05] MEDS ORDERED: SENNOSIDES 8.6 MG TABLET PO PRN (15:45)
[2016-07-05] MEDS ORDERED: BUMETANIDE 1 MG TABLET PO PRN (15:45)
--- NOTE | 2016-07-05 16:07 | ANESPO ---
Post-Op Note Date 07/05/16 Time: 16:07 Status Pt Participated in Evaluation: Pt participated in person Vital Signs Date Time Temp Pulse Resp B/P Pulse Ox O2 Delivery O2 Flow Rate FiO2 07/05/16 15:42 97.8 75 20 170/72 100 Mask 6.00 Respiratory Function: Airway patent, Regular respirations Cardiovascular Function: Regular pulse Mental Status: Alert/oriented Pain Level Intensity: 0 Unable to Assess Pain Due To: Medicated/Sleeping Hydration: Taking po fluids Complications during Recovery None apparent Follow-Up Instructions Instructions Per Surgeon BRUNO LUCIANO CRNA Jul 05, 2016 16:07
--- NOTE | 2016-07-05 16:08 | ANESPD ---
Peripheral Nerve Blockade Physician: Troy Zepeda MD Date: 07/05/16 Surgical Procedure: left TKA Discussion Discussed risks/options/alternatives of anesthesia and questions answered. Patient consents. Nursing pain assessment noted. Block Start: 16:00 Block Stop: 16:05 Block Employed: Adductor Canal Indication: post-operative pain Approach: left side confirmed Position: supine Patient: Consent, risks/benefits discussed, Informed, post block act. discussed Monitors: EKG, SpO2, NIBP IV Sedation: No Initial Vital Signs First Documented Vital Signs Date Time Temp Pulse Resp B/P Pulse Ox O2 Delivery O2 Flow Rate FiO2 07/05/16 11:05 97.6 57 19 227/92 96 Room Air 07/05/16 15:42 6.00 Post Vital Signs Vital Signs Date Time Temp Pulse Resp B/P Pulse Ox O2 Delivery O2 Flow Rate FiO2 07/05/16 15:42 97.8 75 20 170/72 100 Mask 6.00 Initial Pain Score: 0 Post Block Score: 0 Prep: chlorhexadine/ETOH Ultrasound Used?: Yes Injectate Ropivacaine (%): 0.5 Ropivacaine (mL): 20 Was Epi 1:200,000 Used?: No Injection Injection made incrementally with constant monitoring and aspiration every [5] ml. BRUNO LUCIANO CRNA Jul 05, 2016 16:08
--- NOTE | 2016-07-05 16:25 | DI ---
Indication: ITS.REASON: POSTOP left knee replacement PROCEDURE: KNEE LEFT 2 VIEW: Encounter: Initial Comparison: None Findings: Postoperative changes of left total knee replacement are seen. There is expected postoperative subcutaneous gas. No evidence of hardware failure or acute fracture. No retained radiopaque surgical instruments or sponges. Overlying material causing artifact. Impression: New left total knee prosthesis without evidence of immediate complication. .
--- NOTE | 2016-07-05 16:41 | NUR ---
ARRIVED PT ARRIVED TO ROOM 134. PT SETTLED INTO THE ROOM. PT MOVED FROM THE CART TO THE BED WITH MINIMAL STAFF ASSISTANCE.
--- NOTE | 2016-07-05 17:11 | NUR ---
PT note: Pt states unable to feel her legs at 17:08 and unable to walk at this time. Will perform PT evaluation tomorrow morning.
[2016-07-05] MEDS: POTASSIUM CHLORIDE 10 MEQ TABLET PO SCH (18:00)
[2016-07-05] MEDS: ACETAMINOPHEN 325 MG TABLET PO SCH (18:00)
--- NOTE | 2016-07-05 18:21 | NUR ---
SHIFT SUMMARY PATIENT IS ALERT AND ORIENTED X3. PATIENT VITALS ARE STABLE AND PATIENT IS ON ROOM AIR. PATIENT DENIES CP, NAUSEA, AND SOA. PATIENT DRESSING IS SATURATED. PROVIDER NOTIFIED AND WILL CHANGE. ABD IN PLACE OVER WITH FANY WRAP AND POLAR PACK COVERING. PATIENT IS UP WITH 2X ASSIST.
--- NOTE | 2016-07-05 20:05 | PDORTHOPN ---
Subjective Date DATE: 07/05/16 TIME: 20:01 Subjective Adrienne was seen this evening for drainage from the knee incision. Her pain is rated as a "0". She has been up with good tolerance. No other concerns. Objective Vital Signs Vital signs Vital Signs 07/05/16 07/05/16 07/05/16 07/05/16 11:05 11:38 15:42 15:45 Temp 97.6 97.8 Pulse 57 75 75 Resp 19 16 20 20 B/P 227/92 170/72 Pulse Ox 96 100 100 O2 Delivery Room Air Mask Room Air O2 Flow Rate 6.00 07/05/16 07/05/16 07/05/16 07/05/16 15:46 15:50 15:55 16:00 Pulse 73 72 69 71 Resp 17 19 16 17 B/P 170/72 174/78 166/69 190/78 Pulse Ox 100 98 96 94 07/05/16 07/05/16 07/05/16 07/05/16 16:05 16:10 16:15 16:20 Temp 96.8 Pulse 68 67 65 Resp 22 21 16 B/P 154/69 178/108 163/72 Pulse Ox 95 94 94 07/05/16 07/05/16 07/05/16 07/05/16 16:43 16:43 16:46 17:15 Temp 96.5 95.8 Pulse 69 66 73 67 B/P 163/92 185/100 Pulse Ox 94 94 97 90 O2 Delivery Room Air Room Air Room Air Room Air 07/05/16 07/05/16 07/05/16 07/05/16 17:16 17:30 17:45 18:00 Pulse 66 66 67 60 Resp 20 B/P 188/81 174/83 183/73 184/71 Pulse Ox 95 94 98 96 O2 Delivery Room Air Room Air Room Air Room Air 07/05/16 19:48 Pulse 64 Resp 20 Pulse Ox 95 O2 Delivery Room Air Height (Feet): 5 Height (Inches): 1.00 Weight (Kilograms): 97.300 Surgical Site Incision: FOUND: bloody drainage present (Mepilex was removed. 4-5 maci put in the lower incision and 2-3 mid incision. Wound looked good. The lower 2 " of the zip tie dressing was removed as it was loose. New Mepilex applied after tx with Chloraprep.) Neurologic (Brief) Neurological Brief: FOUND: neuro intact Psychiatric (Brief) Psychiatric Brief: FOUND: alert, no acute distress, normal affect Laboratory Laboratory Laboratory Tests 07/05/16 11:12 Assessment & Plan Problems: (1) Degenerative arthritis of left knee Status: Chronic Qualifiers: Osteoarthritis type: primary Qualified Codes: M17.12 - Unilateral primary osteoarthritis, left knee Assessment & Plan: Pt is doing well. A couple small areas of drainage txd with maci. Will Ice and rest tonight. Hospital Course Summary Disclaimer The visit summary below is not to be considered part of the above Progress Note. AYALA BARLOW Jul 05, 2016 20:04
[2016-07-05] MEDS: TRAMADOL 50 MG TABLET PO PRN (20:53)
[2016-07-05] MEDS: ASPIRIN *EC* 325mg TABLET PO SCH (20:54)
[2016-07-05] MEDS: CEFAZOLIN 2 G in NORMAL SALINE 100 ML IV SCH (21:13)
[2016-07-05] MEDS: NOZIN NASAL SWAB NS SCH (21:33)
[2016-07-05] MEDS ORDERED: LOSARTAN 100 MG TABLET PO SCH (22:00)
[2016-07-05] MEDS ORDERED: FLUTICASONE NASAL SPRAY 50 MCG EA NOSTRIL SCH (22:00)
[2016-07-05] MEDS ORDERED: METOPROLOL XL 50 MG TABLET PO SCH (22:00)
[2016-07-05] MEDS ORDERED: SENNOSIDES 8.6 MG TABLET PO SCH (22:00)
[2016-07-05] MEDS ORDERED: MIRABEGRON 25 MG TABLET PO SCH (22:00)
[2016-07-06] VITALS (9 sets, daily range): BP systolic 137–172; BP diastolic 63–88; PULSE 53–66; RESP 16–20; TEMP 95.9–97.4; O2SAT 87–97
[2016-07-06] MEDS: ACETAMINOPHEN 325 MG TABLET PO SCH ×3 (00:04→12:14)
[2016-07-06] MEDS: TRAMADOL 50 MG TABLET PO PRN ×2 (03:14→12:12)
--- NOTE | 2016-07-06 04:45 | NUR ---
DRESSING CHANGE MODERATE BLEEDING FOUND ON DRESSING, APPLIED FRESH 4X4 GAUZE AND ABD. REPLACED SLEEVE,FANY WRAP AND POLAR PACK. NO SCD TO THIS LEG. WILL CONTINUE TO MONITOR.
--- NOTE | 2016-07-06 04:53 | NUR ---
OXYGEN RECEIVED NOTIFICATION FROM TELEMETRY THAT PT OXYGEN SAT WERE MAINTAINING IN THE UPPER 80S. PT PLACED ON 2L02 SATS INCREASED TO UPPER 90S. WILL CONTINUE TO MONITOR.
--- NOTE | 2016-07-06 05:05 | NUR ---
HEART RATE PT HEART RATE DROPPED TO 49 AND ONLY SUSTAINED FOR 2 SECONDS AND JUMPED BACK UP INTO THE 50'S. PT IS ASYMPTOMATIC AT THIS TIME. BP SYSTOLICALLY WAS 137. WILL CONTINUE TO MONITOR, PHYSICIAN WILL BE NOTIFIED IN THE A.M.
[2016-07-06 05:20] LABS: HCT - HEMATOCRIT 34.9 % (36-46); HGB - HEMOGLOBIN 11.2 GM/DL (12-16); MEAN CORPUSCULAR HGB 29.8 UUG (26-34); MEAN CORPUSCULAR HGB CONC(MCHC 32.1 GM/DL (31-37); MEAN CORPUSCULAR VOLUME 92.8 UM3 (80-100); MEAN PLATELET VOLUME 11.1 UM3 (9.4-12.4); RED BLOOD COUNT 3.76 M/MM3 (4.00-5.20); WBC - WHITE BLOOD COUNT 10.3 T/MM3 (4.5-11.0)
[2016-07-06 05:32] LABS: ANION GAP 8 MEQ/L (5-15); BUN/CREATININE RATIO 21 RATIO (6-26); CALCIUM 8.7 MG/DL (8.4-10.2); CHLORIDE 108 MEQ/L (98-107); CO2 - CARBON DIOXIDE 27 MEQ/L (22-30); CREATININE 0.9 MG/DL (0.7-1.2); GLOMERULAR FILTRATION RATE 62; GLUCOSE 129 MG/DL (65-110); POTASSIUM 4.1 MEQ/L (3.6-5); SODIUM 143 MEQ/L (134-144)
[2016-07-06] MEDS: CEFAZOLIN 2 G in NORMAL SALINE 100 ML IV SCH (05:55)
[2016-07-06] MEDS: NOZIN NASAL SWAB NS SCH (05:55)
[2016-07-06] MEDS ORDERED: LEVOTHYROXINE 125 MCG TABLET PO SCH (06:30)
[2016-07-06] MEDS ORDERED: FENOFIBRATE 160 MG TABLET PO SCH (08:00)
[2016-07-06] MEDS ORDERED: DOCUSATE SODIUM 100 MG CAPSULE PO SCH (09:00)
[2016-07-06] MEDS ORDERED: POLYETHYL.GLYCOL 3350 PACKET 17gm PO SCH (09:00)
[2016-07-06] MEDS: ASPIRIN *EC* 325mg TABLET PO SCH (09:37)
[2016-07-06] MEDS: POTASSIUM CHLORIDE 10 MEQ TABLET PO SCH (09:38)
--- NOTE | 2016-07-06 09:52 | NUR ---
CM CM IN TO VISIT WITH PT. SHE IS ALERT AND ORIENTED. SHE HAS FWW. SHE HAS TALKED WITH DR. GALLEGOS AND HAS BEEN GIVEN PERMISSION TO DO THERAPY ON THER OWN. SHE IS GIVEN RX FOR THERAPY IN CASE SHE CHANGES HER MIND AFTER DC. SHE IS GIVEN CM CONTACT INFORMATION. MOISES IS 6. Addendum: 07/06/16 at 0919 by ANALIA RUBY RN Amended: Links added.
[2016-07-06] MEDS ORDERED: ACET-2321 PO (10:51)
[2016-07-06] MEDS ORDERED: POLY17PO18 PO (10:51)
[2016-07-06] MEDS ORDERED: TRAM50TA53 PO (10:51)
[2016-07-06] MEDS ORDERED: NAPR-1119 PO (10:51)
[2016-07-06] MEDS ORDERED: ASPI-917 PO (10:51)
--- NOTE | 2016-07-06 13:15 | DSPDOC ---
General Date Date DATE: 07/06/16 TIME: 13:14 Attending Physician Troy Zepeda MD Admitting Physician Troy Zepeda MD Consulting Physician Admitting Diagnosis PRIMARY DEGENERATIVE JOINT DISEASE LEFT KNEE Discharge Diagnosis primary DJD left knee Procedures Left total knee arthroplasty Diagnosis left knee primary DJD History of Present Illness HPI Elements This patient was admitted for elective surgical tx of end stage degenerative joint disease that failed to respond to conservative treatment. Further details of this is found in the admission H&P. Hospital Course After appropriate preoperative clearance and signing of operative consent, the patient was given IV antibiotics, according to orthopedic protocol. The patient was taken to the operating room and underwent elective joint arthroplasty. Following surgery, antibiotics were discontinued less than 24 hours according to joint protocol. Appropriate anticoagulants were initiated and SCDs added for DVT prevention. The dressing was clean, dry, and intact. Pain control was obtained via multimodal approach. Bowel motivation addressed with scheduled and PRN medications. Early mobilization was initiated through PT services. Discharge arrangements made by a collaborative effort between the patient and Case Management. Follow-up is scheduled in 2-3 weeks. Discharge instructions given by orthopedic providers and nursing staff at discharge. Discharge condition was good. Problems: (1) Degenerative arthritis of left knee Status: Chronic Assessment & Plan: Pt is doing well. A couple small areas of drainage txd with maci. Will Ice and rest tonight. Associated Postoperative Event: Acute P.O. Anemia Ongoing Care Required?: No Acute P.O. Anemia: Patient received IVF, Labs monitored daily, No intervention required, HGB drop-acceptable range Laboratory Laboratory Tests Test 07/06/16 04:45 White Blood Count 10.3T/MM3 Red Blood Count 3.76M/MM3 Hemoglobin 11.2GM/DL Hematocrit 34.9% Mean Corpuscular Volume 92.8UM3 Mean Corpuscular Hemoglobin 29.8UUG Mean Corpuscular Hemoglobin Concent 32.1GM/DL RDW Standard Deviation 39.8FL Platelet Count 183T/MM3 Mean Platelet Volume 11.1UM3 Turbidity < 20 Sodium Level 143MEQ/L Potassium Level 4.1MEQ/L Chloride Level 108MEQ/L Carbon Dioxide Level 27MEQ/L Anion Gap 8MEQ/L Blood Urea Nitrogen 19.0MG/DL Creatinine 0.9MG/DL Glomerular Filtration Rate Calc 62 BUN/Creatinine Ratio 21RATIO Glucose Level 129MG/DL Calculated Osmolality 279MOSM/KG Calcium Level 8.7MG/DL Icterus Index < 2 Chemistry Specimen Hemolysis < 15 Home Meds Active Scripts Polyethylene Glycol 3350 (Healthylax) 17 Gm Powd.pack, 17 G PO DAILY, #30 PACKET Prov:MELANIE MEYERS 07/06/16 Tramadol HCl (Ultram) 50 Mg Tablet, 50-100 MG PO Q4H Y for PAIN, #60 TAB Prov:MELANIE MEYERS 07/06/16 Naproxen Sodium (Naproxen 220mg) 220 Mg Tablet, 440 MG PO BID Y for PAIN, #84 TAB Prov:MELANIE MEYERS 07/06/16 Aspirin *EC* (Aspirin EC) 325 Mg Tablet.dr, 325 MG PO BID, #84 TAB Prov:MELANIE MEYERS 07/06/16 Acetaminophen (Tylenol) 325 Mg Tablet, 650 MG PO QID, #100 TAB Prov:MELANIE MEYERS 07/06/16 Reported Medications Cephalexin (Keflex) 500 Mg Capsule, 1 CAP PO TID, CAP 06/28/16 Mirabegron (Myrbetriq) 50 Mg Tab.er.24h, 50 MG PO HS, TAB 06/28/16 Potassium Gluconate (Potassium) 600 Mg Tablet, 2 TAB PO BID 05/09/16 Fenofibrate (Fenofibrate) 160 Mg Tablet, 160 MG PO DAILY 08/18/14 Losartan Potassium (Losartan Potassium) 100 Mg Tablet, 100 MG PO HS 08/18/14 Metoprolol Succinate (Metoprolol Succinate) 50 Mg Tab.er.24h, 50 MG PO HS 08/18/14 Fluticasone Propionate (Fluticasone Prop 50 mcg/actuation Nasal [place]) 120 [place] /16 G [place], 2 SPRAY NS HS 08/18/14 Bumetanide (Bumetanide) 1 Mg Tablet, 1 MG PO DAILY Y for EDEMA 08/18/14 Levothyroxine Sodium (Levoxyl) 125 Mcg Tablet, 125 MCG PO DAILY 07/06/09 Discontinued Reported Medications [Coq10/Krill Oil] No Conflict Check, 600 MG PO DAILY 05/09/16 Fish Oil/Dha/Epa (Fish Oil 1,200 mg Fish Oil) 1 Each Capsule, 3 TAB PO BID, CAP 05/09/16 Acetaminophen (Acetaminophen) 650 Mg Tablet.er, 2 TAB PO PM, TAB 05/09/16 Aspirin *EC* (Aspirin EC) 81 Mg Tablet.dr, 1 TAB PO DAILY, TAB DO NOT CHEW, CRUSH OR BREAK TABLET 05/09/16 Estradiol (Estrace Vaginal Cream 0.01%) 21 Applic/42 G Cr, 1 APPLIC VAGINALLY HS , G USUAL APPLICATION: 2-4 GRAMS VAGINALLY 05/09/16 Discharge Disposition Please refer to Case Management Notes for patient's disposition. Estimated Blood Loss MELANIE MEYERS Jul 06, 2016 13:15
--- NOTE | 2016-07-06 14:27 | NUR ---
DISCHARGE NURSING NOTE PT WAS DISCHARGED FROM THE HOSPITAL AT THIS TIME. ALERT AND ORIENTED X3, VITAL SIGNS STABLE, ON RA. THIS RN AND JORDIN RATE MANAGER WENT OVER DISCHARGE PAPERWORK WITH THE PT INCLUDING DISCHARGE DIET, ACTIVITY, MEDICATIONS, SCRIPTS, INCISION CARE AND FOLLOW-UP APPOINTMENTS. PT VERBALIZED UNDERSTANDING OF DISCHARGE PAPERWORK. PT'S INCISION SITE COVERED BY MEPILEX DRESSING THAT IS CURRENTLY C/D/I. PT HAS ALSO BEEN PROVIDED SOME ABDS AND KERLIX FOR IF THE INCISION SITE WAS TO BEGIN BLEEDING AGAIN. PT INSTRUCTED TO CALL DR. GALLEGOS'S OFFICE IF THERE ARE ANY ISSUES NOTED WITH THE INTEGRITY OF THE DRESSING. PT'S IV SITE WAS DCD AND IDENTIFICATION BAND WAS REMOVED. THE PT WAS ACCOMPANIED BY FAMILY AT TIME OF DISCHARGE, ALL BELONGINGS SENT WITH. NO CONCERNS NOTED AT TIME OF DISCHARGE.
[2016-07-07] MEDS ORDERED: MILK OF MAGNESIA 30 ML SUSP PO SCH (08:00)
[2016-07-07] MEDS ORDERED: BISACODYL 10 MG SUPPOSITORY RECTALLY SCH (20:00)
== END 2016-07-06 14:27 | disposition home or self-care (01) | DRG 470 ==
LOC: SRG 07-05 10:26
PROVIDERS: ADMIT Orthopaedic Surgery; ATTEND Orthopaedic Surgery
PROC: 0SRD0J9 Replacement of Left Knee Joint with Synthetic Substitute, Cemented, Open Approach (ICD-10-PCS; principal; 2016-07-05 14:17)
DX: M17.12 Unilateral primary osteoarthritis, left knee (principal); Z68.41 Body mass index [BMI] 40.0-44.9, adult; D64.9 Anemia, unspecified; E03.9 Hypothyroidism, unspecified; E78.2 Mixed hyperlipidemia; I10 Essential (primary) hypertension; E66.9 Obesity, unspecified; N39.41 Urge incontinence; I69.315 Cognitive social or emotional deficit following cerebral infarction; I69.311 Memory deficit following cerebral infarction; Z87.440 Personal history of urinary (tract) infections
CPT/HCPCS: 36415; 80048; 85027; 94762

== ENCOUNTER 2016-10-25 07:30 | Inpatient (IN) ==
[~2016-10-25 07:30] MED LIST changes: -ACET-2890 PO; +ACETAMINOPHEN 500 MG TABLET PO ONE; -ASPI-1085 PO; -BUME1TAB17 PO; +CEFAZOLIN 1 G INJECTION IVP ONE; -COQ PO; -ESTR42.53 VAGINALLY; +FAMOTIDINE PB 20 MG/50 ML BAG IV ONE; -FENO160T12 PO; -FISH1CAP59 PO; -FLUT16SP NS; -KRILL OIL PO; -LEVO125T62 PO; +LIDOCAINE 1% (10mg/ml) 10mL MDV SQ ONE; -LOSA100T44 PO; -METO-277 PO; +METOCLOPRAMIDE 10mg/2ml INJECTION IVP ONE; +NOZIN NASAL SWAB NAS ONE; +ONDANSETRON 4 MG/2 ML INJECTION IVP ONE; -POTA99TA24 PO; +TRANEXAMIC ACID 1,000 MG in NS 100 ML IV ONE
[2016-10-25] MEDS ORDERED: EPINEPHrine 0.25 MG, BUPIVACAINE 0.25% PF 30 ML, MORPHINE SULFATE 15 MG, KETOROLAC INJ ... OPSITE ONE (08:00)
[2016-10-25 08:02] VITALS: BMI 39.4
[2016-10-25] MEDS ORDERED: LR 1,000 ML IV SCH (08:02)
[2016-10-25] MEDS: LR 1,000 ML IV SCH ×2 (09:00→11:30)
[2016-10-25] MEDS ORDERED: KETAMINE 500 MG/10 ML INJECTION ONE (09:05)
[2016-10-25] MEDS ORDERED: FentaNYL 100 MCG/2 ML INJECTION ONE (09:05)
[2016-10-25] MEDS ORDERED: VANCOMYCIN 1,000 MG INJECTION ONE (09:14)
[2016-10-25] MEDS ORDERED: SALINE FLUSH 10ml SYRINGE IVF PRN (09:16)
--- NOTE | 2016-10-25 09:29 | Anesthesia Preoperative Report ---
Anesthesia Preoperative Record - Date and Time Date: 10/25/16 Preoperative Diagnosis: Total Knee Arthroplasty M17.11 Right Knee OA Proposed Procedure: Right Total Knee Replacement NPO Since Date: 10/25/16 NPO Since Time: 00:00 Allergies/Adverse Reactions: Allergies Allergy/AdvReac Type Severity Reaction Status Date / Time codeine Allergy Unknown RASH Verified 10/25/16 08:21 Sulfa (Sulfonamide Allergy Unknown HIVES Verified 10/25/16 08:21 Antibiotics) gentamicin AdvReac Unknown COUGH Verified 10/25/16 08:21 prednisone AdvReac Unknown ELEVATED Verified 10/25/16 08:21 BP THAT CASUED A STROKE ANTIHISTAMINE DECONGESTANT AdvReac Unknown HYPER Uncoded 10/10/16 06:14 diphenhydramine HCl AdvReac Unknown IRRITABILITY; Uncoded 10/10/16 06:14 HYPER - Vital Signs Vital Signs: Temperature 97.6 F 10/25/16 08:01 Pulse Rate 62 10/25/16 09:05 Respiratory Rate 16 10/25/16 09:05 Blood Pressure 182/79 H 10/25/16 09:05 Pulse Oximetry 99 10/25/16 09:05 Oxygen Delivery Method Room Air Height and Weight: Height 5 ft 1 in Weight 94.7 kg Body Mass Index 39.4 - Medications Inpatient Medications: Current Medications Epinephrine HCl 0.25 mg/Bupivacaine HCl 30 ml/Morphine Sulfate 15 mg/Ketorolac Tromethamine 60 mg/Sodium Chloride 65.25 mls @ 1 mls/hr OPSITE INTRAOP ONE PRN Reason: Protocol Stop: 10/28/16 01:14 Lactated Ringer's (Lactated Ringers) 1,000 mls @ 50 mls/hr IV .Q20H RORO Lactated Ringer's (Lactated Ringers) 1,000 mls @ 50 mls/hr IV .Q20H RORO Last Admin: 10/25/16 09:00 Dose: 50 mls/hr Sodium Chloride (Iv Flush) 10 - 80 ml IVF PRN PRN PRN Reason: [place] Home Medications: Home Medications Medication Instructions Recorded Confirmed Type RX: Levothyroxine Sodium [Levoxyl] 125 mcg PO DAILY #0 07/06/09 10/25/16 History RX: Bumetanide 1 mg PO DAILY PRN #0 08/18/14 10/25/16 History RX: Fenofibrate 160 mg PO DAILY #0 08/18/14 10/25/16 History RX: Fluticasone Nasal [place] 2 spray EA NOSTRIL HS #0 08/18/14 10/25/16 History [Flonase] RX: Losartan Potassium 100 mg PO HS #0 08/18/14 10/25/16 History RX: Potassium Gluconate [Potassium] 2 tab PO BID #0 05/09/16 10/25/16 History RX: cephALEXin [Keflex] 1 cap PO DAILY #0 cap 06/28/16 10/25/16 History Aspirin [Ecotrin] 81 mg PO DAILY 10/08/16 10/24/16 History Docusate Sodium [Stool Softener] 100 mg PO DAILY 10/08/16 10/25/16 History RX: Acetaminophen [Tylenol] 650 - 975 mg PO Q6H PRN 10/08/16 10/25/16 History RX: Metoprolol Succinate 50 mg PO HS 10/08/16 10/25/16 History RX: Oxybutynin Chloride 5 mg PO HS 10/08/16 10/25/16 History Naproxen Sodium [Aleve] 2 cap PO BIDWM PRN 10/23/16 10/23/16 History Guaifenesin [Mucinex] 10/25/16 History Guaifenesin [Mucinex] 1 tab PO PRN PRN 10/25/16 10/25/16 History Is Patient on Beta Jeannette?: Yes - Medical History Respiratory: DENIES: Asthma, Bronchitis, Chronic Obstructive Pulmonary Disease (COPD), Dyspnea, Orthopnea, Pulmonary Embolism, Pneumonia, Upper Respiratory Infection, Pulmonary Edema, Sleep Apnea, Tuberculosis, Other Cardiovascular: Reports: Abnormal EKG (in the past. Stress test 10-24-16 normal) , Hypertension, High Cholesterol DENIES: Angina Gastrointestional: Reports: Morbid Obesity Neuro/Musculoskeletal: Reports: Other (Right neck pain from recent fall from ladder) Renal/Endocrine: Reports: Thyroid Disease (hypo. well controlled with meds) Other History: DENIES: Anesthesia Reactions, Now, Blood Transfusions, Chemotherapy , Cancer, Hemophilia, Malignant Hyperthermia, Sickle Cell Disease, Other - Surgical History HEENT Surgeries: Reports: Eye Surgery (Gregory. eyelid liFT) Endocrine Surgery/Treatments: Reports: Other (THYROID ABLATION W/ BLISS ) GI Surgery/Treatments: Reports: Colonoscopy Surgery/Treatment: REPORT: Other (bladder tuck in addition to bladder surg w / hyst) Musculoskeletal Surgery/Tx: Reports: Knee Arthroscopy (rt and lt), Total Knee Replacement (left JULY 05, 2016) Reproductive Surgery/Treatment: Reports: Hysterectomy (with bladder suspension) , Tubal Ligation Anesthesia Reactions: None Hx Family Anesthesia Reaction: No History of Motion Sickness: No - Social History Smoking Status: Never smoker Substance Use Type: does not use Alcohol Intake Frequency: does not drink - Pertinent Findings Laboratory: CBC and BMP 10/25/16 08:13 10/25/16 08:13 BMP 10/25/16 08:13 Sodium 145 H Potassium 4.5 Chloride 104 Carbon Dioxide 30 BUN 30.0 H Creatinine 1.1 Glucose 101 Calcium 10.1 EKG Rhythm: Normal Sinus Rhythm - Physical Exam Respiratory Exam: Present: lungs clear, bilateral breath sounds equal Cardiovascular Exam: Present: regular rate and rhythm, no murmur - Airway Assessment Mallampati Score: III TMD: 2 Fingerbreadths Neck Extension: fair Overall Assessment: may be difficult intubation - ASA ASA Score: 2 - Plan Anesthesia: Neuroaxial Peripheral Nerve Block: Saphenous-Right (Postop) - Discussion Discussion: Discussed risks/options/alternatives of anesthesia and questions answered. Patient consents. Nursing pain assessment noted. Present for Discussion: spouse Attestation Statement: Prior to the delivery of any anesthetic medication, I examined the patient, developed the plan, obtained the patient's consent and discussed the risk and benefits of the procedure with the patient/guardian. - Additional Information Seen by Anesthesia: Yes
--- NOTE | 2016-10-25 09:33 | History & Physical Update ---
- History and Physical Update Date: 10/25/16 Update: I evaluated this patient and found no changes in the history and clinical exam findings. The treatment plan and recommendations are also unchanged from the previous documentation.
[2016-10-25] MEDS ORDERED: LIDOCAINE 1% (10mg/ml) 2mL INJ PF SDV ID ONE (09:36)
[2016-10-25] MEDS ORDERED: MIDAZOLAM 2mg/2ml INJECTION ONE (10:22)
[2016-10-25] MEDS ORDERED: PROPOFOL 0 MG/0 ML VIAL IV ONE ×2 (10:25→12:05)
[2016-10-25] MEDS ORDERED: VANCOMYCIN 1,000 MG INJECTION IAR ONE (11:07)
[2016-10-25] MEDS ORDERED: PROPOFOL 20 ML ONE (12:05)
--- NOTE | 2016-10-25 12:09 | Operative Note ---
- Procedure Date of Admission: 10/25/16 Side: right Preoperative Diagnosis: knee primary DJD Postoperative Diagnosis: Same as preoperative diagnosis. Operation: total knee arthroplasty Surgeon: Nely Zepeda MD [employer] Department Chair: ALEJANDRO Queen Complications: None. Regional/Trunk Block: Spinal Peripheral Nerve Block: Saphenous-Right Estimated Blood Loss: See Anesthesia Record. Fluids: Please see Anesthesia Record. Description of Procedure: Mrs. Randhawa and her right knee were identified and marked in the preoperative holding area. She was brought back to the operating suite and placed supine on the operating table. Spinal anesthetic was administered. The operative lower extremity was prepped and draped in a sterile fashion. Timeout was performed. She had a varus deformity and slight flexion contracture. An anterior midline incision followed by medial parapatellar arthrotomy was performed. The tourniquet was not used until cementing. Hemostasis was obtained with electrocautery. The patella was resurfaced to a size 29. A distal femoral osteotomy was then performed in 5 of valgus using intramedullary guide. The femur was sized at a for and rotation set using the epicondylar axis. Distal femoral cuts were performed with a 4-in-1 cutting block. A proximal tibial cut was then made perpendicular to its long axis using an extramedullary guide. At this point remaining meniscus and osteophytes were removed and joint cocktail was injected throughout soft tissue. Trial components were placed with a 9 mm spacer. This allowed for full extension and flexion and the patella tracked well. The leg was then exsanguinated and the tourniquet inflated to 250 mmHg. The tibia was then stamped at a size 3 at the proper rotation. The bone was then prepared for cementing and Clear Triathalon components were cemented into place and allowed to cure in extension. The tourniquet was then let down and hemostasis obtained with electrocautery. Betadine solution was used during the curing period for 3 minutes. 1 g of vancomycin powder was placed into the joint before the capsulotomy was repaired with #1 Vicryl. I then left my assistant case manager close the subcutaneous tissue and skin with 2-0 Vicryl and Monocryl. Dermabond was used on the skin. The drapes were then removed and she was taken to recovery room under the care of anesthesia.
[2016-10-25] MEDS ORDERED: ROPIVACAINE 0.5% (5mg/ml) 30ml INJ ONE (12:35)
--- NOTE | 2016-10-25 13:39 | XRay Report ---
Indication: Post op PROCEDURE: XR knee RT 2V: Encounter: Initial Comparison: Right knee radiographs dated October 15, 2016 Findings: Postoperative changes of right total knee replacement are seen. There is expected postoperative subcutaneous gas. No evidence of hardware failure or acute fracture. No retained radiopaque surgical instruments or sponges. Overlying material causing artifact. Impression: New right total knee prosthesis without evidence of immediate complication. .
[2016-10-25] MEDS ORDERED: BUMETANIDE 1 MG TABLET PO PRN (13:41)
[2016-10-25] MEDS ORDERED: LORazepam 1 MG TABLET PO PRN (13:41)
[2016-10-25] MEDS ORDERED: NAPROXEN 220 MG TABLET PO PRN (13:41)
[2016-10-25] MEDS ORDERED: ONDANSETRON 4 MG/2 ML INJECTION IVP PRN (13:41)
[2016-10-25] MEDS ORDERED: NOZIN NASAL SWAB NAS ONE (13:41)
[2016-10-25] MEDS ORDERED: FALL RISK - PHARMACY CONSULT MC PRN (13:47)
[2016-10-25] MEDS: NS 1,000 ML IV SCH (13:50)
[2016-10-25] MEDS: NOZIN NASAL SWAB NAS SCH ×2 (13:52→21:09)
--- NOTE | 2016-10-25 14:24 | Anesthesia Postoperative Note ---
- Date and Time Date: 10/25/16 Time: 13:25 - Status Patient Participated in Evaluation: Patient Participated in Person Vital Signs: Temperature 97.1 F 10/25/16 13:30 Pulse Rate 66 10/25/16 14:02 Respiratory Rate 15 10/25/16 14:06 Blood Pressure 159/72 H 10/25/16 14:02 Pulse Oximetry 92 10/25/16 14:06 Oxygen Delivery Method Room Air Respiratory Function: Airway Patent Cardiovascular Function: Regular Pulse Mental Status: Alert and Oriented Pain Intensity: 0 Hydration: IV Infusing Complications During Recover: None Apparent - Follow-Up Instructions Instructions: Per Surgeon
--- NOTE | 2016-10-25 14:24 | Anesthesia Procedure Note ---
Peripheral Nerve Blockade - Procedure Physician: Troy Zepeda MD Date: 10/25/16 Discussion: Discussed risks/options/alternatives of anesthesia and questions answered. Patient consents. Nursing pain assessment noted. Block Start: 12:47 Block Stop: 12:50 Blocked Employed: Adductor Canal Indication: Post-Operative Pain Approach: Right Side Confirmed Position: Supine Patient: Consent, Risks/Benefits Discussed, Informed, Post Block Act. Discussed IV Sedation: No (spinal remains in effect) Initial Vital Signs: Temperature 97.6 F 10/25/16 08:01 Temperature Source Oral 10/25/16 08:01 Pulse Rate 64 10/25/16 08:01 Respiratory Rate 17 10/25/16 08:01 Blood Pressure 199/88 H 10/25/16 08:01 Blood Pressure Mean 125 10/25/16 08:01 Blood Pressure Position Sitting 10/25/16 08:01 Pulse Oximetry 94 10/25/16 08:01 Oxygen Delivery Method 10/25/16 08:01 Post Vital Signs: Temperature 97.6 F 10/25/16 08:01 Pulse Rate 62 10/25/16 09:05 Respiratory Rate 16 10/25/16 09:05 Blood Pressure 182/79 H 10/25/16 09:05 Pulse Oximetry 99 10/25/16 09:05 Oxygen Delivery Method Room Air Initial Pain Pain Score: 0 Post Block Pain Score: 0 Prep: Chlorhexadine/ETOH Ultrasound Used?: Yes - Nerve Simulator Paresthesia/Pain: None - Injectate Ropivacaine (%): 0.5 Ropivacaine (mL): 20 Was Epi 1:200,000 Used?: No Injection: Injection made incrementally with constant monitoring and aspiration every ml
[2016-10-25] MEDS: ACETAMINOPHEN 325 MG TABLET PO SCH ×3 (16:06→19:36)
[2016-10-25] MEDS: TRAMADOL 50 MG TABLET PO PRN (16:08)
[2016-10-25] MEDS: CEFAZOLIN 2 G in NS 100 ML IV SCH (18:12)
[2016-10-25] MEDS: DOCUSATE SODIUM 100 MG CAPSULE PO SCH (21:10)
[2016-10-25] MEDS: ASPIRIN *EC* 325 MG TABLET PO SCH (21:10)
[2016-10-25] MEDS ORDERED: FLUTICASONE NASAL SPRAY 50mcg EA NOSTRIL SCH (22:00)
[2016-10-25] MEDS ORDERED: SENNOSIDES 8.6 MG TABLET PO SCH (22:00)
[2016-10-25] MEDS ORDERED: LOSARTAN 100 MG TABLET PO SCH (22:00)
[2016-10-26] MEDS: ACETAMINOPHEN 325 MG TABLET PO SCH ×3 (00:16→13:42)
[2016-10-26] MEDS: TRAMADOL 50 MG TABLET PO PRN ×2 (00:16→08:57)
[2016-10-26] MEDS: CEFAZOLIN 2 G in NS 100 ML IV SCH (02:49)
[2016-10-26] MEDS: NS 1,000 ML IV SCH (05:12)
[2016-10-26] MEDS: NOZIN NASAL SWAB NAS SCH ×2 (05:14→13:42)
[2016-10-26] MEDS: LEVOTHYROXINE 125 MCG TABLET PO SCH ×2 (07:03→08:52)
--- NOTE | 2016-10-26 08:04 | Orthopedic Progress Note ---
Date: Subjective/Severity of Illness: Adrienne is feeling okay this AM. She has been up ambulating, pain is controlled. She denies chest pain or shortness of breath. Orthopedic Objective PO Vital signs: Temperature 97.3 F 10/26/16 04:00 Pulse Rate 64 10/26/16 04:00 Respiratory Rate 16 10/26/16 04:00 Blood Pressure 144/66 H 10/26/16 04:00 Pulse Oximetry 92 10/26/16 04:20 Oxygen Delivery Method Nasal Cannula Oxygen Flow Rate 0.5 Height and Weight: Height 5 ft 1 in Weight 208 lb 12.444 oz Body Mass Index 39.4 - Constitutional General Appearance: Present: alert, orientated x3, no acute distress - Respiratory Exam Present: non-labored - Cardiovascular Exam Present: peripheral edema Capillary Refill: < 2-3 Seconds - Abdominal Exam Present: soft - Extremities Exam Extremities: Present: pulses intact - Knee Exam Knee Exam: Present: ROM - Surgical Site Incision: clean, dry, intact - Wound Management Right Knee Primary Dressing: Mepilex - Labs Result Diagrams: 10/26/16 03:58 10/26/16 03:58 Abnormal lab results 10/25/16 10/25/16 10/26/16 Range/Units 08:13 08:13 03:58 RBC 3.96 L (4.00-5.20) M/MM3 Hgb 11.3 L D (12-16) GM/DL Lymph % (Auto) 51.0 H (23-45) % Sodium 145 H (134-144) MEQ/L BUN 30.0 H (7-17) MG/DL BUN/Creatinine Ratio 27 H (6-26) RATIO Calculated Osmolality 285 H (261-280) MOSM/KG 10/26/16 Range/Units 03:58 RBC (4.00-5.20) M/MM3 Hgb (12-16) GM/DL Lymph % (Auto) (23-45) % Sodium (134-144) MEQ/L BUN 21.0 H (7-17) MG/DL BUN/Creatinine Ratio (6-26) RATIO Calculated Osmolality (261-280) MOSM/KG H & H 10/25/16 10/26/16 Range/Units 08:13 03:58 Hgb 14.0 11.3 L D (12-16) GM/DL Hct 44.2 36.4 D (36-46) % Orthopedic Assessment and Plan (1) Arthritis of knee, right Status: Acute Assessment and Plan: Continue pain management, mobilization. ASA for DVT prevention. Hospital Course Summary Disclaimer: The visit summary below is not to be considered part of the above Progress Note.
[2016-10-26] MEDS: DOCUSATE SODIUM 100 MG CAPSULE PO SCH (08:56)
[2016-10-26] MEDS: ASPIRIN *EC* 325 MG TABLET PO SCH (08:56)
[2016-10-26] MEDS ORDERED: FENOFIBRATE 160 MG TABLET PO SCH (09:00)
[2016-10-26] MEDS ORDERED: POLYETHYL GLYCOL 3350 17gm PACKET PO SCH (09:00)
--- NOTE | 2016-10-26 11:18 | Discharge Summary ---
Orthopedic Discharge Info Date of admission: 10/25/16 07:44 <Stuart Fuentes L - 10/26/16 12:18> 10/25/16 07:44 <Kamran Eugene S - 10/26/16 11:18> Primary care physician: Tavares Gatica MD <Stuart Fuentes L - 10/26/16 12:18> Tavares Gatica MD <Kamran Eugene S - 10/26/16 11:18> Attending Physician: Troy Zepeda MD <Stuart Fuentes - 10/26/16 12:18> Troy Zepeda MD <Kamran Eugene S - 10/26/16 11:18> Consults: 10/25/16 08:00 Consult to Anesthesiology [CONS] Routine Consulting Provider: ALEJANDRO Palacios Reason For Exam: Preoperative Assessment 10/25/16 13:41 Case Management Consult [CONS] Routine Reason For Exam: Discharge Planning DME-Walker [CONS] Routine Height: 5 ft 1 in Weight: 208 lb 12.444 oz Comment: change dressing in 2 weeks Total Joint Outpatient Therapy [CONS] Routine Comment: change dressing in 2 weeks <Stuart Fuentes L - 10/26/16 12:18> 10/25/16 08:00 Consult to Anesthesiology [CONS] Routine Consulting Provider: ALEJANDRO Palacios Reason For Exam: Preoperative Assessment 10/25/16 13:41 Case Management Consult [CONS] Routine Reason For Exam: Discharge Planning DME-Walker [CONS] Routine Height: 5 ft 1 in Weight: 208 lb 12.444 oz Comment: change dressing in 2 weeks Total Joint Outpatient Therapy [CONS] Routine Comment: change dressing in 2 weeks <Kamran Eugene S - 10/26/16 11:18> - Discharge Diagnosis (1) Arthritis of knee, right Status: Acute <Kamran Eugene - 10/26/16 11:11> (1) Arthritis of knee, right Status: Acute <Stuart Fuentes - 10/26/16 12:18> - Procedures Procedures: Procedures Replacement of Left Knee Joint with Synthetic Substitute, Cemented, Open Approach (07/05/16) <Stuart Fuentes - 10/26/16 12:18> Procedures Replacement of Left Knee Joint with Synthetic Substitute, Cemented, Open Approach (07/05/16) <Kamran Eugene - 10/26/16 11:18> - Laboratory Result Diagrams: 10/26/16 03:58 10/26/16 03:58 <Stuart Fuentes - 10/26/16 12:18> Laboratory: Abnormal lab results 10/26/16 10/26/16 Range/Units 03:58 03:58 RBC 3.96 L (4.00-5.20) M/MM3 Hgb 11.3 L D (12-16) GM/DL BUN 21.0 H (7-17) MG/DL H & H 10/25/16 10/26/16 Range/Units 08:13 03:58 Hgb 14.0 11.3 L D (12-16) GM/DL Hct 44.2 36.4 D (36-46) % <Stuart Fuentes - 10/26/16 12:18> Abnormal lab results 10/26/16 10/26/16 Range/Units 03:58 03:58 RBC 3.96 L (4.00-5.20) M/MM3 Hgb 11.3 L D (12-16) GM/DL BUN 21.0 H (7-17) MG/DL H & H 10/25/16 10/26/16 Range/Units 08:13 03:58 Hgb 14.0 11.3 L D (12-16) GM/DL Hct 44.2 36.4 D (36-46) % <Kamran Eugene - 10/26/16 11:18> Orthopedic Discharge HPI - HPI Comments This patient was admitted for elective surgical tx of end stage degenerative joint disease that failed to respond to conservative treatment. Further details of this is found in the admission H&P. <Kamran Eugene - 10/26/16 11:18> Orthopedic Hospital Course Hospital course: 10/26/16 11:12 After appropriate preoperative clearance and signing of operative consent, the patient was given IV antibiotics, according to orthopedic protocol. The patient was taken to the operating room and underwent elective joint arthroplasty. Following surgery, antibiotics were discontinued less than 24 hours according to joint protocol. Appropriate anticoagulants were initiated and SCDs added for DVT prevention. The dressing was clean, dry, and intact. Pain control was obtained via multimodal approach. Bowel motivation addressed with scheduled and PRN medications. Early mobilization was initiated through PT services. Discharge arrangements made by a collaborative effort between the patient and Case Management. Follow-up is scheduled in 2-3 weeks. Discharge instructions given by orthopedic providers and nursing staff at discharge. Discharge condition was good. <Kamran Eugene Melchor - 10/26/16 11:18> Ongoing care required?: No <Kamran Eugene Melchor - 10/26/16 11:18> - Postoperative Anemia patient received IVF, labs monitored daily, no intervention required, HGB drop- acceptable <Kamran Eugene Melchor - 10/26/16 11:18> Discharge Plan - Med Rec/Dispo Referrals/Follow Up: Troy Zepeda MD [Physician] - 11/19/16 10:30 am <Stuart Fuentes - 10/26/16 12:18> Truven Instructions: [facility] Postop Instructions <Stuart Fuentes - 10/26/16 12:18> Prescriptions: New Acetaminophen [Tylenol] 650 mg PO QID tablet Aspirin *EC* [Ecotrin] 325 mg PO BID tablet PEG 3350 17gm PACKET [Miralax] 17 gm PO DAILY packet Tramadol [Ultram] 50 - 100 mg PO Q6H PRN #60 tablet PRN Reason: Pain Continue Bumetanide 1 mg PO DAILY PRN #0 PRN Reason: EDEMA Fluticasone Nasal [place] [Flonase] 2 spray EA NOSTRIL HS #0 Fenofibrate 160 mg PO DAILY #0 Potassium Gluconate [Potassium] 2 tab PO BID #0 cephALEXin [Keflex] 1 cap PO DAILY #0 cap Docusate Sodium [Stool Softener] 100 mg PO DAILY Metoprolol Succinate 50 mg PO HS Guaifenesin [Mucinex] 1 tab PO PRN PRN PRN Reason: ALLERGIES Levothyroxine Sodium [Levoxyl] 125 mcg PO DAILY #0 Losartan Potassium 100 mg PO HS #0 Oxybutynin Chloride 5 mg PO HS Naproxen Sodium [Aleve] 2 cap PO BIDWM PRN PRN Reason: Pain Guaifenesin [Mucinex] Discontinued Acetaminophen [Tylenol] 650 - 975 mg PO Q6H PRN PRN Reason: Pain Aspirin [Ecotrin] 81 mg PO DAILY <Stuart Fuentes - 10/26/16 12:18> - Disposition 01 Discharged Home, Self-Care <Stuart Fuentes - 10/26/16 12:18>
[2016-10-26 11:40] VITALS: BP 148/64; PULSE 65; RESP 16; TEMP 96; O2SAT 91
[2016-10-26] MEDS ORDERED: SENNOSIDES 8.6 MG TABLET PO PRN (12:45)
[2016-10-27] MEDS ORDERED: BISACODYL 10 MG SUPPOSITORY RECTALLY SCH (20:00)
== END 2016-10-26 14:07 | disposition home health service (06) | DRG 470 ==
LOC: SRG 07:44
PROVIDERS: ADMIT Orthopaedic Surgery; ATTEND Orthopaedic Surgery